=== PATIENT | female | born 1980 | race Caucasian/White ===

== ENCOUNTER 2016-06-03 00:04 | Emergency (ER) | payer OTHER ==
[~2016-06-03 00:04] MED LIST: HYDR-3534 PO; IBUP800T23 PO; NAPR500T PO; ORTHTAB4 PO; PROM25TA5 PO; VENL100T PO; VENTAER INH
[2016-06-03 02:22] VITALS: BP 145/95; PULSE 101; RESP 12; TEMP 99; O2SAT 99
--- NOTE | 2016-06-03 03:56 | PD ---
HPI Chief Complaint: Back/ Neck Pain or Injury Time Seen by Provider: 03:39 Travel History International Travel<30 days: No (unknown) Contact w/Intl Traveler<30days: No (unknown) History of Present Illness HPI 36yo F presents to the ED with c/o worsening neck pain since yesterday. Pt has been having neck pain since February 2016 and was seen by orthopedic surgeon Dr. Gonzales 3 days ago who believes she has a pinched nerve in her cervical spine. She had MRI cervical spine yesterday at [facility]. Pt states the neck pain is sharp and radiates down bilateral arms, more on left. Pain also radiates up to her head. +Pain in upper trapezius. She was cleaning the house yesterday prior to feeling the pain. Denies any fever, trauma, focal weakness or numbness, chest pain, sob, n/v, abdominal pain, visual changes. PFSH Past Medical History Asthma: Yes Depression: Yes Diminished Hearing: No Gastrointestinal Disorders: Yes (IBS) Respiratory: Yes Immunizations Current: Yes Sleep Apnea: Yes (cpap at night) : 0 Para: 0 Past Surgical History Tonsillectomy: Yes (ADDENOIDS) Social History Alcohol Use: Yes (SOCIAL) Tobacco Use: No (quit 2 years ago) Substance Use: No Allergies-Medications (Allergen,Severity, Reaction): Coded Allergies: No Known Allergies (Unverified , 06/03/16) Reported Meds & Prescriptions Reported Meds & Active Scripts Active Ibuprofen 600 Mg Tab 600 Mg PO Q8HR PRN Phenergan (Promethazine HCl) 25 Mg Tab 25 Mg PO Q6H PRN Ibuprofen 800 Mg Tab 800 Mg PO Q6HR PRN Lortab (Hydrocodone-Acetaminophen) 7.5-325 Mg Tab 1 Tab PO Q4H PRN Reported Medrol Dosepak (Methylprednisolone) 4 Mg Dspk 4 Mg PO DIRECTED Per Pharmacist direction Naproxen 500 Mg Tab 500 Mg PO BID Ortho Tri-Cyclen (Norgestimate-Ethinyl Estradiol) 0.18/0.215/0.25 mg-35 Mcg Tab 1 Tab PO DAILY Effexor (Venlafaxine HCl) 100 Mg Tab 100 Mg PO Q12H Ventolin Hfa 18 GM Inh (Albuterol Sulfate) 90 Mcg/Act Aer 2 Puff INH Q4H PRN Review of Systems Except as stated in HPI: all other systems reviewed are Neg Physical Exam Narrative GENERAL: 36yo F not in acute distress. SKIN: Warm and dry. HEAD: Atraumatic. Normocephalic. EYES: Pupils equal and round. No scleral icterus. No injection or drainage. ENT: +TTP midline cervical spine C4-C5. +TTP upper trapezius bilaterally. NECK: Trachea midline. No JVD. CARDIOVASCULAR: Regular rate and rhythm. No murmur appreciated. RESPIRATORY: No accessory muscle use. Clear to auscultation. Breath sounds equal bilaterally. GASTROINTESTINAL: Abdomen soft, non-tender, nondistended. Hepatic and splenic margins not palpable. MUSCULOSKELETAL: No obvious deformities. No clubbing. No cyanosis. No edema. NEUROLOGICAL: Awake and alert. No obvious cranial nerve deficits. Motor grossly within normal limits. Normal speech. PSYCHIATRIC: Appropriate mood and affect; insight and judgment normal. Data Data Last Documented VS Vital Signs Date Time Temp Pulse Resp B/P Pulse Ox O2 Delivery O2 Flow Rate FiO2 06/03/16 05:52 78 16 126/82 96 06/03/16 05:00 Room Air 06/03/16 02:22 99.0 Orders Diazepam (Valium) (06/03/16 04:00) Ketorolac Inj (Toradol Inj) (06/03/16 04:00) Sodium Chlor 0.9% 1000 Ml Inj (Ns 1000 M (06/03/16 04:00) MDM Medical Decision Making Medical Screen Exam Complete: Yes Emergency Medical Condition: Yes Differential Diagnosis Cervical radiculopathy vs. musculoskeletal pain Narrative Course 36yo F with neck and upper trapezius pain. No focal neurologic deficits. Pt likely have pinched nerve that is causing pain radiating down her arm. She already had MRI cspine yesterday and will follow up with Dr. Gonzales as outpatient. Pt given valium 5mg PO and toradol 30mg IV along with NS IVF. Pt reevaluated and feels much better. Headache and neck pain has resolved. Return precautions given. Diagnosis Primary Impression: Neck pain Patient Instructions: General Instructions Departure Forms: Tests/Procedures Additional Instructions: Please follow up with Dr. Gonzales as outpatient. Return to the ED if symptoms worsen. Med/Other Pt SpecificInfo: Prescription(s) given Scripts Ibuprofen 600 Mg [id number] Mg PO Q8HR PRN (PAIN) #20 TAB Ref 0 Prov:Lisbeth Lizama DO 06/03/16 Disposition: 01 DISCHARGE HOME Condition: Stable Lisbeth Lizama DO Jun 03, 2016 03:56
[2016-06-03] MEDS ORDERED: KETOROLAC TROMETHAMINE 30 MG/ML (IVP) VIAL IV PUSH ONE (04:00)
[2016-06-03] MEDS ORDERED: SODIUM CHLOR 0.9% 1000 ML INJ 1,000 ML IV ONE (04:00)
[2016-06-03] MEDS ORDERED: DIAZEPAM 5 MG TAB PO ONE (04:00)
[2016-06-03] MEDS ORDERED: MEDR4PAK PO (04:06)
[2016-06-03 04:26] VITALS: BP 145/82; PULSE 74; RESP 18; O2SAT 97
[2016-06-03 05:00] VITALS: BP 129/79; PULSE 78; RESP 16; O2SAT 97
[2016-06-03] MEDS ORDERED: IBUP-232 PO (05:38)
[2016-06-03 05:52] VITALS: BP 126/82
== END 2016-06-03 05:55 | disposition home or self-care (01) ==
LOC: PHED 00:04
DX: M54.2 Cervicalgia (principal); J45.909 Unspecified asthma, uncomplicated
CPT/HCPCS: 96361; 96374; 99283; J1885; J7030

== ENCOUNTER 2016-07-30 10:54 | Inpatient (IN) | payer OTHER ==
[~2016-07-30] VITALS: Ht 167.6 cm; Wt 73.6 kg
[~2016-07-30 10:54] MED LIST changes: +IBUP-232 PO; +MEDR4PAK PO
[2016-08-19] MEDS ORDERED: PANT40TA3 PO (06:52)
[2016-08-19] MEDS ORDERED: LOMO2.5T PO (06:52)
[2016-08-19] MEDS ORDERED: GABA400C5 PO (06:52)
[2016-08-19] MEDS ORDERED: DICY10CA12 PO (06:52)
[2016-08-19 06:54] VITALS: BP 129/88; PULSE 84; RESP 18; TEMP 98.4; O2SAT 97
[2016-08-19] MEDS ORDERED: SODIUM CHLORID 0.9% 500 ML IV PRN (07:00)
[2016-08-19] MEDS: CHLORHEXIDINE GLUCONATE 4% SOLN 120 ML BTL TOPICAL SCH ×2 (07:00→19:21)
[2016-08-19] MEDS ORDERED: VANCOMYCIN 1000 MG/NS 250 ML (for <70 kg) IV SCH ×2 (07:00)
[2016-08-19] MEDS ORDERED: CHLORHEXIDINE GLUCONATE 2 % 1 PACK (2 CLOTHS) TOPICAL PRN (07:00)
[2016-08-19] MEDS ORDERED: METOPROLOL TARTRATE 25 MG TAB PO PRN (07:00)
[2016-08-19] MEDS ORDERED: ceFAZolin 2 GM PREMIX 50 ML IV SCH (07:00)
[2016-08-19] MEDS ORDERED: POVIDONE IODINE 5% (ANTISEPSIS KIT) 4 APPLICATIONS EACH NARE PRN (07:00)
[2016-08-19] MEDS ORDERED: LACTATED RINGER'S 1000 ML IV PRN (07:00)
[2016-08-19] MEDS ORDERED: INSULIN HUMAN REGULAR 1,000 UNITS/10 ML VIAL SQ PRN (07:00)
[2016-08-19] MEDS ORDERED: ACETAMINOPHEN 1000 MG/100 ML VIAL IV ONE (08:06)
[2016-08-19] MEDS ORDERED: FAMOTIDINE 20 MG/2 ML VIAL ONE (08:06)
[2016-08-19] MEDS ORDERED: HYDROmorphone HCL PF 2 MG/ML VIAL ONE (08:06)
[2016-08-19] MEDS ORDERED: GENTAMICIN SULFATE 80 MG/2 ML VIAL IRRIGATION ONE (09:42)
[2016-08-19] MEDS ORDERED: BUPIVACAINE/EPINEPHRINE 0.25% PF 30 ML VIAL INFIL ONE (09:43)
--- NOTE | 2016-08-19 10:27 | PD.OP ---
cc: Nick Dove MD; Brent Dove MD Operative Report Date of Surgery: Aug 19, 2016 Preoperative Diagnosis: Herniated nucleus pulposus C5 6 central. Herniated nucleus pulposus C6 7 central, left. Left greater than right cervical radiculopathy Postoperative Diagnosis: Same Procedure: Anterior cervical discectomy decompression with bilateral foraminotomies, C5 6. Anterocervical discectomy decompression with bilateral foraminotomy, C6 7. Left anterior iliac crest bone graft Anesthesia: Gen. Surgeon: Brent Dove Metal Control Coordinator(s): JOSÉ LUIS Guido Operation and Findings: EBL: 50 cc INDICATIONS: Patient is a 36-year-old female with significant neck and arm pain. Investigative studies shows evidence of disc herniations at C5 6 and C6 7. There is evidence of mild spinal stenosis at both levels. Despite conservative care, the patient continued painful and symptomatically. She presents for surgical treatment. NOTE: Ebony Guido PA-C was present for the entire surgical procedure as my assistant professor of biochemistry. In my medical opinion her skill and care was necessary for proper management of this patient PROCEDURE: The patient was brought to the operating room and anesthetized in the supine position. This patient was positioned supine on the radiolucent table. All pressure points were protected in the anterior cervical spine and iliac crest was scrubbed with alcohol followed by Hibiclens followed by ChloraPrep. A timeout was done and antibiotics were given within 1 hour time window. Lateral radiographic images were used identifying the proper level. A right anterior incision was made in line with skin creases. The platysma was opened in line with the incision. Deep dissection continued in the interval between the carotid sheath and the esophagus. The longus-coli muscles were lifted on both sides and retractors were positioned allowing good exposure. Lateral radiographic images were used to identify the proper level. Luna style interosseous pins were placed at C5 and C6 allowing exposure to that level. The microscope was rolled into the field. A total discectomy was accomplished and posterior osteophytes were removed. The posterior longitudinal ligament and annulus was taken down. Bilateral foraminotomies were accomplished. The endplates were squared up anticipating later bone grafting. A blunt probe could be placed out each foramen without evidence of nerve root compromise. The C5 pin was placed down to 7. An anterior exposure was accomplished. We performed a total discectomy with excision of the posterior annulus and posterior longitudinal ligament. Bilateral foraminotomies were accomplished. Osteophytes were removed. The endplates were squared up anticipating later bone grafting. A blunt probe could be placed out each foramen without evidence of nerve root compromise. The left iliac crest was approached. A small stab incision was made allowing percutaneous access to the anterior iliac crest. Multiple cores of cancellous bone were harvested and taken to the back table to be used for later bone grafting. The wound was irrigated anesthetized and closed with 4-0 Vicryl followed by Dermabond. The case was turned over to Dr. Nick Doev for fusion and instrumentation per his dictation. FINDINGS: There was evidence of a disc herniation posterior to the annulus both at C5 6 and C6 7. The decompression was very satisfactory. Bilateral foraminotomies were accomplished. There was an element of the disc into the foramen to the left side at the C6 C7 level which was decompressed. No complication was noted. NOTE: This surgery was performed in 2 parts. The first part was the neurosurgical decompression performed under the variable power stereo microscope by the undersigned in addition to the bone graft. The second portion of the surgery will be performed by the orthopedic spine component by co -surgeon, Dr. Nick Dove for the anterior fusion with interbody cage and anterior plate. The skill of 2 surgeons was necessary to perform distinct separate procedural services as dictated above and dictated in the following operative note by Dr. Nick Dove. Brent Dove MD Aug 19, 2016 10:27
[2016-08-19] MEDS ORDERED: ONDANSETRON HCL 4 MG/2 ML VIAL IV PRN (11:45)
[2016-08-19] MEDS ORDERED: DIPHENOXYLATE/ATROPINE 2.5 MG/0.025 MG TAB PO PRN (11:45)
[2016-08-19] MEDS ORDERED: NALOXONE HCL 0.4 MG/ML AMP IV PRN (11:45)
[2016-08-19] MEDS ORDERED: Post-op Orders (for Pharmacy) MISC XX ONE (11:45)
[2016-08-19] MEDS ORDERED: ALUMINUM/MAGNESIUM/SIMETH 30 ML CUP PO PRN (11:45)
[2016-08-19] MEDS ORDERED: ALBUTEROL SULFATE 90 MCG/ACT HFA 18 GM INHALER INH PRN (11:45)
[2016-08-19] MEDS ORDERED: ACETAMINOPHEN/HYDROcodone 325 MG/7.5 MG TAB PO PRN (11:45)
[2016-08-19] MEDS ORDERED: SODIUM CHLORIDE 0.9% FLUSH 5 ML FLUSH IVF PRN (11:45)
[2016-08-19] MEDS ORDERED: DO NOT ADM ANY ANTICOAGULANT DRUGS PRN (11:47)
[2016-08-19] MEDS: LACTATED RINGER'S 1000 ML INJ 1,000 ML IV SCH ×2 (11:50→19:27)
--- NOTE | 2016-08-19 11:51 | HHI.PR ---
Immediate Post Op Note Procedure Date: Aug 19, 2016 Pre Op Diagnosis: C5-6,C6-7 HNP; Mild DDD,OA; Ramesh Cervical Radiculitis,Ramesh UE Weakness Post Op Diagnosis: Same Surgeon: Nick Dove MD Credit Reporter(s): Jaclyn Luna PA-C Procedure: C5-6,C6-7 AIF,ACC,ASI Complications: None Specimen(s) removed: None Estimated blood loss: 50cc for entire case Anesthesia: General Drains: None Patient to: PACU Patient Condition: Good Implant/Devices: SEE IMPLANT LOG (if applicable) Date/Time of Procedure: SEE SURGICAL CARE RECORD Nick Dove MD Aug 19, 2016 11:51
[2016-08-19] MEDS ORDERED: MIDAZOLAM HCL 2 MG/2 ML VIAL ONE (11:56)
[2016-08-19] MEDS ORDERED: fentaNYL CITRATE 250 MCG/5 ML AMP ONE (11:56)
[2016-08-19] MEDS ORDERED: *morphine SULFATE 8 MG/ML PERIprocedure ONLY ONE ×2 (11:57→12:24)
[2016-08-19] MEDS ORDERED: ONDANSETRON HCL 4 MG/2 ML VIAL IV PUSH ONE (12:00)
[2016-08-19] MEDS ORDERED: PROPOFOL 200 MG/20 ML AMP IV ONE (12:00)
[2016-08-19] MEDS ORDERED: LACTATED RINGER'S 1000 ML INJ 1,000 ML IV ONE (12:00)
[2016-08-19] MEDS ORDERED: NEOSTIGMINE 3 MG/3 ML SYR IV ONE (12:00)
[2016-08-19] MEDS: DICYCLOMINE HCL 10 MG CAP PO SCH ×2 (13:00→17:41)
[2016-08-19] MEDS: GABAPENTIN 300 MG CAP PO SCH ×2 (13:00→17:41)
[2016-08-19] MEDS: ACETAMINOPHEN/HYDROcodone 325 MG/7.5 MG TAB PO PRN ×2 (13:35→19:27)
--- NOTE | 2016-08-19 14:12 | RADRPT ---
EXAM DATE/TIME: 08/19/2016 11:05 [facility] COMPARISON: SPINE CERVICAL LTD (AP&LAT), April 15, 2016, 23:38. INDICATIONS : Cervical fusion, C5-6 and 6-7. MEDICAL HISTORY : None. SURGICAL HISTORY : Tonsillectomy. ENCOUNTER: Initial ACUITY: 1 day PAIN SCORE: Non-responsive. LOCATION: Cervical. FINDINGS: 3 intraoperative spot images of the cervical spine. Anterior fusion hardware is seen from C5-C7. CONCLUSION: Intraoperative spot images showing anterior cervical fusion hardware in place. Garrett Cantu MD on August 19, 2016 at 14:10 Board Certified Radiologist. This report was verified electronically.
[2016-08-19 14:30] VITALS: BP 135/92; PULSE 95; RESP 18; TEMP 98.2; O2SAT 99
[2016-08-19 15:22] VITALS: O2SAT 96
[2016-08-19] MEDS: MORPHINE SULFATE 4 MG/ML INJ IV PUSH PRN ×3 (16:39→23:32)
[2016-08-19 19:23] VITALS: BP 135/69; PULSE 96; RESP 19; TEMP 98.1; O2SAT 97
[2016-08-19] MEDS: SODIUM CHLORIDE 0.9% FLUSH 5 ML FLUSH IVF SCH (19:28)
[2016-08-19] MEDS ORDERED: ZOLPIDEM TARTRATE 5 MG TAB PO PRN (21:00)
[2016-08-19 21:11] VITALS: O2SAT 98
[2016-08-20] VITALS: BP 133/69; PULSE 100; RESP 16; TEMP 97.8; O2SAT 98
[2016-08-20] MEDS: ACETAMINOPHEN/HYDROcodone 325 MG/7.5 MG TAB PO PRN ×3 (02:26→12:57)
[2016-08-20 04:00] VITALS: BP 112/66; PULSE 80; RESP 16; TEMP 97.3; O2SAT 97
[2016-08-20] MEDS: MORPHINE SULFATE 4 MG/ML INJ IV PUSH PRN ×2 (04:32→09:12)
--- NOTE | 2016-08-20 06:59 | PD.ORT.PN ---
Subjective Subjective Remarks pt doing better, arm pain improved, post op neck soreness Objective Vitals Vital Signs Date Time Temp Pulse Resp B/P Pulse Ox O2 Delivery O2 Flow Rate FiO2 08/20/16 04:00 97.3 80 16 112/66 97 08/20/16 00:00 97.8 100 16 133/69 98 08/19/16 21:11 98 08/19/16 19:23 98.1 96 19 135/69 97 08/19/16 15:22 96 Nasal Cannula 2.00 08/19/16 14:30 98.2 95 18 135/92 99 08/19/16 14:00 98.7 88 14 138/82 98 Nasal Cannula 2 08/19/16 13:30 69 13 125/82 97 Nasal Cannula 2 08/19/16 13:00 87 12 135/79 98 Nasal Cannula 2 08/19/16 12:45 85 14 138/89 98 Nasal Cannula 2 08/19/16 12:30 76 15 151/82 98 Nasal Cannula 2 08/19/16 12:15 69 13 135/99 99 Nasal Cannula 2 08/19/16 12:00 73 14 161/81 98 Nasal Cannula 2 08/19/16 11:47 98.4 80 15 157/93 99 Nasal Cannula 2 I/O 08/19/16 08/19/16 08/19/16 08/20/16 08/20/16 08/20/16 07:00 15:00 23:00 07:00 15:00 23:00 Intake Total 1340 ml 780 ml 1226 ml Output Total 1350 ml 650 ml Balance -10 ml 780 ml 576 ml Intake Oral 40 ml 480 ml 480 ml IV Total 300 ml 746 ml Other 1300 ml Output Urine Total 700 ml 650 ml Estimated Blood Loss 50 ml Other 600 ml Objective Remarks also seen by Dr. Nick Dove [place] collar in place motor is +5/5, improved from pre-operatively dressing dry and intact Assessment & Plan Assessment and Plan POD #1 s/p C5-7 ACDF [place] collar x 4 weeks counseled on no smoking and no NSAIDs discharge home today, orthopedically stable [place] 7.5 in chart Jaclyn Luna Aug 20, 2016 06:59
[2016-08-20 07:52] VITALS: O2SAT 97
[2016-08-20 08:00] VITALS: BP 143/78; PULSE 91; RESP 16; TEMP 98; O2SAT 99
[2016-08-20] MEDS ORDERED: NORGESTIMATE ETHINYL ESTRADIOL PO SCH (09:00)
[2016-08-20] MEDS ORDERED: ORTHO TRI CYCLEN PO SCH (09:00)
[2016-08-20] MEDS: SODIUM CHLORIDE 0.9% FLUSH 5 ML FLUSH IVF SCH (09:00)
[2016-08-20] MEDS ORDERED: PANTOPRAZOLE SOD 40 MG DELAYED RELEASE TAB PO SCH (09:00)
[2016-08-20] MEDS ORDERED: MULTIVITAMINS/MINERALS THERAPEUTIC TAB PO SCH (09:00)
[2016-08-20] MEDS: GABAPENTIN 300 MG CAP PO SCH ×2 (09:08→12:57)
[2016-08-20] MEDS: DICYCLOMINE HCL 10 MG CAP PO SCH ×2 (09:08→12:57)
[2016-08-20] MEDS ORDERED: PNEUMOCOCCAL POLYVALENT INJ 25 MCG/0.5 ML SYR IM ONE (10:00)
[2016-08-20] MEDS ORDERED: INFLUENZA VIRUS VACCINE (QUADRIVALENT) 0.5 ML SYR IM ONE (10:00)
[2016-08-20] MEDS: LACTATED RINGER'S 1000 ML INJ 1,000 ML IV SCH (12:39)
--- NOTE | 2016-08-23 15:54 | MP ---
cc: SALMA MARCUM M.D., [place] DATE OF SURGERY: 08/19/2016 PREOPERATIVE DIAGNOSIS 1. C5-6 moderate herniated nucleus pulposus. 2. C6-7 mild central left-sided herniated nucleus pulposus. 3. Cervical spine mild degenerative disc disease, osteoarthritis. 4. Bilateral cervical radiculitis with bilateral upper extremity weakness. POSTOPERATIVE DIAGNOSIS 1. C5-6 moderate herniated nucleus pulposus. 2. C6-7 mild central left-sided herniated nucleus pulposus. 3. Cervical spine mild degenerative disc disease, osteoarthritis. 4. Bilateral cervical radiculitis with bilateral upper extremity weakness. PROCEDURE C5-6, C6-7 interbody fusion; C5-6, C6-7 SpineNet ACC anterior cervical cage; C5-C7 SpineNet Rauscher anterior spinal instrumentation. . SURGEON Leland Dove MD ASSESSMENT MARIE Solorzano SPECIMEN None. ESTIMATED BLOOD LOSS 50 ccs for the entire case. COMPLICATIONS None. ANESTHESIA General. DRAIN None. CONDITION Stable. PLAN OF ACTIVITY Per orders. PROCEDURE Dr. Brent Dove and myself were co-surgeons in this surgical procedure. Dr. Brent Dove performed the neuro decompression portion of procedure by performing a C5-6, C6-7 anterior cervical diskectomy, anterior decompression using operative microscope and a left anterior iliac crest bone grafting. I was not present for his portion of the procedure. I then performed the orthopedic fusion and stabilization portion of the procedure. My visitor use assistant MARIE Solorzano was present for the entire surgical case. She was medically necessary for the entire case because of the complexity of the case and to facilitate the performance of the procedure. The FACS TEACHER at the back table was not a skill set for this case to manipulate the instruments, e.g., the multiple different types of soft tissue retractors, trial implants and permanent implants. The endplates at C6-7 were prepared for fusion. The hyaline cartilage endplates were removed using angled curettes and burs. A 6, 10 x 12 ACC cage was placed at the interspace. Using anterior iliac crest bone grafting under fluoroscopic guidance interbody fusion was performed at C6-7 level. The endplates at C5-6 were prepared for fusion. Hyaline cartilage endplates were removed using angled curettes and burs. A 5, 10 x 12 ACC cage was placed in the interspace. Anterior iliac crest bone grafting was used under fluoroscopic guidance. A 40-mm length SpineNet Rauscher plate was used that revealed contour ____ normal cervical lordosis. Two pins were used to fixate the plate to the anterior vertebral bodies. Under fluoroscopic guidance it was found to be in satisfactory positioning. The two screws were used in the vertebral body at C5, C6 and C7. The screws at C5 and C6 were 12 mm in length. The screws in C7 were 14 mm in length. These screws were 4.0 mm in diameter fixed angle screws. Each screw was drilled. Each screw was appropriately inserted into the vertebral bodies and each screw head was appropriately locked to the plate. The fixation pins were removed. The wound itself was dry. It was irrigated with copious amounts of sterile saline antibiotic solution. Intraoperative fluoroscopy AP and lateral position confirmed satisfactory position of the bone graft at C5-6, C6-7, satisfactory position of the ACC anterior spinal cage at C5-6, C6-7 and satisfactory position of anterior spinal instrumentation at C5-C7. The wound was irrigated again with copious amounts of sterile saline. The wound itself was dry. We closed in multiple layers using 3-0 Vicryl. Skin was approximated with running subcuticular 4-0 Vicryl. Dermabond was placed over the skin incision. Sterile dressing was applied. The patient was placed in a [place] cervical orthosis. The patient tolerated the procedure well and arrived in the recovery room in stable and satisfactory condition. MD HOLA Urban/AVELINO /11:39 AM /3:29 PM
== END 2016-08-20 13:09 | disposition home or self-care (01) | DRG 473 ==
LOC: HSDI 08-19 06:19 → N06B 08-19 14:38
PROVIDERS: ADMIT Orthopaedic Surgery Orthopaedic Surgery of the Spine; ATTEND Orthopaedic Surgery Orthopaedic Surgery of the Spine
PROC: 0RG10A0 Fusion of Cervical Vertebral Joint with Interbody Fusion Device, Anterior Approach, Anterior Column, Open Approach (ICD-10-PCS; 2016-08-19)
PROC: 0RB30ZZ Excision of Cervical Vertebral Disc, Open Approach (ICD-10-PCS; 2016-08-19)
PROC: 0RB30ZZ Excision of Cervical Vertebral Disc, Open Approach (ICD-10-PCS; 2016-08-19)
PROC: 0QB30ZZ Excision of Left Pelvic Bone, Open Approach (ICD-10-PCS; 2016-08-19)
PROC: 0RG10A0 Fusion of Cervical Vertebral Joint with Interbody Fusion Device, Anterior Approach, Anterior Column, Open Approach (ICD-10-PCS; principal; 2016-08-19 08:27)
DX: M50.122 Cervical disc disorder at C5-C6 level with radiculopathy (principal); M48.02 Spinal stenosis, cervical region; M50.123 Cervical disc disorder at C6-C7 level with radiculopathy; Z23 Encounter for immunization
CPT/HCPCS: 72040; 76000; 90471; 90732; 94150; C1713; G0009; J0131; J0690; J1170; J1580; J2250; J2270; J2405; J2710; J3010; J3370; J7050; J7120

== ENCOUNTER 2016-08-21 11:55 | Emergency (ER) | payer OTHER ==
[~2016-08-21 11:55] MED LIST changes: +DICY10CA12 PO; +GABA400C5 PO; -IBUP-232 PO; -IBUP800T23 PO; +LOMO2.5T PO; -MEDR4PAK PO; -NAPR500T PO; +PANT40TA3 PO; -PROM25TA5 PO; -VENL100T PO
[2016-08-21 11:57] VITALS: BP 149/79; PULSE 89; RESP 17; TEMP 97.8; O2SAT 98
--- NOTE | 2016-08-21 12:57 | PD ---
HPI . patient wanting refills on pain meds Chief Complaint: Medication Refill Request Time Seen by Provider: 12:57 Travel History International Travel<30 days: No Contact w/Intl Traveler<30days: No Traveled to known affect area: No History of Present Illness HPI 36-year-old female here with request for pain medication refill. Patient recently had neck surgery and is requesting a refill on her hydrocodone. She tells me that the pharmacy will not issue her a refill as she ran out of medications to early. On August 11, 2016 patient was given 50 hydrocodone's me that she is out of them already. She is in tears asking me for pain medication. I have discussed with Dr. Blankenship and offered the patient medications here in the ED, but she is concerned about going home without pain meds. She is yelling and screaming at me. She tells me I am doing nothing. I did offer her pain medications here in ED and offered toradol upon discharge. She got up and left. PFSH Past Medical History Asthma: Yes Depression: Yes Cardiovascular Problems: No Diabetes: No Diminished Hearing: No Endocrine: No Gastrointestinal Disorders: Yes (IBS) Genitourinary: No Musculoskeletal: No Neurologic: Yes Reproductive: No Respiratory: Yes (asthma) Immunizations Current: Yes Sleep Apnea: Yes (cpap at night) Thyroid Disease: No ?: Not : 0 Para: 0 Past Surgical History Body Medical Devices: TITANIUM SCREWS IN LOWER BACK Tonsillectomy: Yes (ADDENOIDS) Social History Alcohol Use: Yes (SOCIAL) Tobacco Use: No (quit 2 years ago) Substance Use: No Allergies-Medications (Allergen,Severity, Reaction): Coded Allergies: No Known Allergies (Unverified , 08/21/16) Reported Meds & Prescriptions Reported Meds & Active Scripts Active Lortab (Hydrocodone-Acetaminophen) 7.5-325 Mg Tab 1 Tab PO Q4H PRN Reported Gabapentin 400 Mg Cap 600 Cap PO TID Pantoprazole (Pantoprazole Sodium) 40 Mg Tab 40 Mg PO DAILY Dicyclomine (Dicyclomine HCl) 10 Mg Cap 10 Mg PO TID Lomotil (Diphenoxylate-Atropine) 2.5-0.025 Mg Tab 1 Tab PO Q6H PRN Ortho Tri-Cyclen (Norgestimate-Ethinyl Estradiol) 0.18/0.215/0.25 mg-35 Mcg Tab 1 Tab PO DAILY Ventolin Hfa 18 GM Inh (Albuterol Sulfate) 90 Mcg/Act Aer 2 Puff INH Q4H PRN Review of Systems General / Constitutional: No: Fever Eyes: No: Visual changes HENT: No: Headaches Cardiovascular: No: Chest Pain or Discomfort Respiratory: No: Shortness of Breath Gastrointestinal: No: Abdominal Pain Genitourinary: No: Dysuria Musculoskeletal: Positive: Pain (neck pain) Skin: No Rash Neurologic: No: Weakness Psychiatric: No: Depression Endocrine: No: Polydipsia Hematologic/Lymphatic: No: Easy Bruising Physical Exam Narrative Patient did allow me to listen to her heart and lungs. They were both without any abnormalities. She was able to get out of the hospital bed and ambulatory without any difficulty. Data Data Last Documented VS Vital Signs Date Time Temp Pulse Resp B/P Pulse Ox O2 Delivery O2 Flow Rate FiO2 08/21/16 11:57 97.8 89 17 149/79 98 MDM Medical Decision Making Medical Screen Exam Complete: Yes Emergency Medical Condition: Yes Medical Record Reviewed: Yes Differential Diagnosis acute on chronic pain, recent neck surgery, drug seeking behavior Narrative Course 36-year-old female here with request for pain medication refill. Patient recently had neck surgery and is requesting a refill on her hydrocodone. She tells me that the pharmacy will not issue her a refill as she ran out of medications to early. On August 11, 2016 patient was given 50 hydrocodone's me that she is out of them already. She is in tears asking me for pain medication. I have discussed with Dr. Blankenship and offered the patient medications here in the ED, but she is concerned about going home without pain meds. She is yelling and screaming at me. She tells me I am doing nothing. I did offer her pain medications here in ED and offered toradol upon discharge. She got up and left. Diagnosis Primary Impression: Left against medical advice Condition: Stable Samina Rousseau Aug 21, 2016 12:57
== END 2016-08-21 14:03 | disposition left against medical advice (07) ==
LOC: NETRI 11:55
DX: R68.89 Other general symptoms and signs (principal); Z76.0 Encounter for issue of repeat prescription
CPT/HCPCS: 99281

== ENCOUNTER 2017-07-16 14:35 | Emergency (ER) | payer OTHER ==
[~2017-07-16] VITALS: Ht 167.6 cm; Wt 77.0 kg
[2017-07-16 14:42] VITALS: BP 129/58; PULSE 106; RESP 16; TEMP 99; O2SAT 98
[2017-07-16] MEDS ORDERED: SODIUM CHLORIDE 0.9% FLUSH 10 ML FLUSH IV FLUSH PRN (15:00)
[2017-07-16 15:12] VITALS: BP 128/71; PULSE 88; RESP 18; O2SAT 98
[2017-07-16 15:12] LABS: BILIRUBIN, URINE NEG (NEG); BLOOD, URINE TRACE (NEG); GLUCOSE,URINE NEG (NEG); KETONE, URINE NEG (NEG); NITRITE,URINE NEG (NEG); URINE LEUKOCYTE ESTERASE SMALL (NEG)
[2017-07-16 15:13] LABS: AUTOMATED NEUTROPHIL # 5.6 TH/MM3 (1.8-7.7); BASOPHIL # 0.1 TH/MM3 (0-0.2); BASOPHIL % 0.7 % (0.0-2.0); EOSINOPHIL # 0.2 TH/MM3 (0-0.4); EOSINOPHIL % 2.4 % (0.0-4.0); HEMATOCRIT 31.5 % (35.0-46.0); LYMPH % 28.5 % (9.0-44.0); LYMPHOCYTE # 2.5 TH/MM3 (1.0-4.8); MEAN CELL VOLUME 79.5 FL (80.0-100.0); MEAN CORPUSCULAR HEMOGLOBIN 27.7 PG (27.0-34.0); MEAN CORPUSCULAR HGB CONC 34.8 % (32.0-36.0); MEAN PLATELET VOLUME 7.1 FL (7.0-11.0); MONO % 4.8 % (0.0-8.0); MONOCYTE # 0.4 TH/MM3 (0-0.9); NEUT % 63.6 % (16.0-70.0); PLATELET COUNT 452 TH/MM3 (150-450); RED BLOOD COUNT 3.97 MIL/MM3 (4.00-5.30); RED CELL DISTRIBUTION WIDTH 15.6 % (11.6-17.2); WHITE BLOOD COUNT 8.8 TH/MM3 (4.0-11.0)
[2017-07-16 15:17] LABS: URINE COLOR YELLOW (YELLW/STRAW)
[2017-07-16 15:18] LABS: BACTERIA, URINE FEW /hpf; RBC, URINE 0-3 /hpf (0-3); SQUAMOUS EPITHELIAL CELL URINE > 8 /hpf (0-5)
[2017-07-16 15:18] LABS: CHLORIDE 107 MEQ/L (98-107); SODIUM (NA) 138 MEQ/L (136-145)
[2017-07-16] MEDS ORDERED: TRAZ100T10 PO (15:19)
[2017-07-16] MEDS ORDERED: FENO145T2 PO (15:19)
[2017-07-16] MEDS ORDERED: BUPR150CR PO (15:19)
[2017-07-16 15:21] LABS: CALCIUM 8.7 MG/DL (8.5-10.1)
[2017-07-16 15:22] LABS: ALBUMIN 3.6 GM/DL (3.4-5.0); BICARBONATE 24.5 MEQ/L (21.0-32.0); BLOOD UREA NITROGEN 10 MG/DL (7-18); GLUCOSE,RANDOM 121 MG/DL (74-106)
[2017-07-16 15:25] LABS: ALT (GPT) 13 U/L (10-53); AST (GOT) 10 U/L (15-37); CREATININE 0.77 MG/DL (0.50-1.00); GLOMERULAR FILTRATION RATE 85 ML/MIN (>89)
[2017-07-16 15:27] LABS: TOTAL BILIRUBIN ADULT 0.2 MG/DL (0.2-1.0); TOTAL PROTEIN 7.2 GM/DL (6.4-8.2)
--- NOTE | 2017-07-16 15:27 | RADRPT ---
EXAM DATE/TIME: 07/16/2017 15:19 [facility] COMPARISON: CT BRAIN W/O CONTRAST, May 10, 2016, 0:02. INDICATIONS : Confusion, headache dysphagia. RADIATION DOSE: 61.25 CTDIvol (mGy) MEDICAL HISTORY : Asthma, IBS SURGICAL HISTORY : Tonsillectomy. Cervical fusion. ENCOUNTER: Initial ACUITY: 2 weeks PAIN SCALE: 8/10 LOCATION: cranial TECHNIQUE: Multiple contiguous axial images were obtained of the head. Using automated exposure control and adj ustment of the mA and/or kV according to patient size, radiation dose was kept as low as reasonably a chievable to obtain optimal diagnostic quality images. DICOM format image data is available electro nically for review and comparison. FINDINGS: CEREBRUM: The ventricles are normal for age. No evidence of midline shift, mass lesion, hemorrhage or acute in farction. No extra-axial fluid collections are seen. POSTERIOR FOSSA: The cerebellum and brainstem are intact. The 4th ventricle is midline. The cerebellopontine angle i s unremarkable. EXTRACRANIAL: The visualized portion of the orbits is intact. Chronic bilateral maxillary sinus disease. SKULL: The calvaria is intact. No evidence of skull fracture. No significant changes compared to the prior study. CONCLUSION: Normal examination for a patient of this age. No significant change has occurred. Chronic maxillary sinus disease. Christ Huang MD on July 16, 2017 at 15:25 Board Certified Radiologist. This report was verified electronically.
[2017-07-16 15:28] LABS: ALKALINE PHOSPHATASE 57 U/L (45-117)
[2017-07-16] MEDS ORDERED: PROCHLORPERAZINE INJ 10 MG/2 ML VIAL IV PUSH ONE (15:30)
[2017-07-16] MEDS ORDERED: diphenhydrAMINE HCL 50 MG/ML VIAL IV PUSH ONE (15:30)
[2017-07-16 15:42] VITALS: BP 115/62; PULSE 87; RESP 20; O2SAT 98
--- NOTE | 2017-07-16 15:46 | PD ---
HPI . Headache Chief Complaint: Headache Time Seen by Provider: 14:48 Travel History International Travel<30 days: No Contact w/Intl Traveler<30days: No Traveled to known affect area: No History of Present Illness HPI This patient presents with chief complaint of headache and confusion for the last week. Her headache is located in the occiput and is described as a pressure-like sensation. She states that the pain can vary anywhere from a 7- 810. It is associated with phonophobia. Ibuprofen provides no relief. She states that she is having trouble completing sentences and feels confused and foggy. She has had no associated fevers and no associated blurred vision. PFSH Past Medical History Asthma: Yes Anxiety: Yes Depression: Yes Cardiovascular Problems: No High Cholesterol: Yes Diabetes: No Diminished Hearing: No Endocrine: No Gastrointestinal Disorders: Yes (IBS) Genitourinary: No Headaches: Yes Musculoskeletal: No Neurologic: Yes Reproductive: No Respiratory: Yes (asthma) Immunizations Current: Yes Sleep Apnea: Yes (cpap at night) Thyroid Disease: No Tetanus Vaccination: Unknown Influenza Vaccination: Yes ?: Not LMP: 1.5 WEEKS : 0 Para: 0 Past Surgical History Body Medical Devices: TITANIUM SCREWS IN LOWER BACK 6 IN NECK Tonsillectomy: Yes (ADDENOIDS) Social History Alcohol Use: Yes (SOCIAL) Tobacco Use: No (quit 2 years ago) Substance Use: No Allergies-Medications (Allergen,Severity, Reaction): Coded Allergies: No Known Allergies (Unverified , 08/21/16) Reported Meds & Prescriptions Reported Meds & Active Scripts Active Reported Wellbutrin SR 12 HR (Bupropion HCl) 150 Mg Tab 150 Mg PO Q12HR Trazodone (Trazodone HCl) 100 Mg Tablet 100 Mg PO HS Fenofibrate 145 Mg Tab 145 Mg PO DAILY Gabapentin 400 Mg Cap 800 Cap PO TID Dicyclomine (Dicyclomine HCl) 10 Mg Cap 10 Mg PO TID Ortho Tri-Cyclen (Norgestimate-Ethinyl Estradiol) 0.18/0.215/0.25 mg-35 Mcg Tab 1 Tab PO DAILY Ventolin Hfa 18 GM Inh (Albuterol Sulfate) 90 Mcg/Act Aer 2 Puff INH Q4H PRN Review of Systems Except as stated in HPI: all other systems reviewed are Neg General / Constitutional: No: Fever, Chills Eyes: No: Blurred Vision, Photophobia HENT: Positive: Headaches Neurologic: Positive: Change in Mentation Physical Exam Narrative GENERAL: This patient looks amazingly considering her symptoms. She is lying on the stretcher comfortably. She is totally lucid. SKIN: warm/dry. Normal color and turgor. HEAD: Normocephalic. Atraumatic. She does have occipital tenderness. EYES: Pupils equal and round. No scleral icterus. No injection or drainage. ENT: No nasal bleeding or discharge. Mucous membranes pink and moist. NECK: Trachea midline. Full range of motion without pain.. Neck is supple. CARDIOVASCULAR: Regular rate and rhythm. RESPIRATORY: No accessory muscle use. Clear to auscultation. Breath sounds equal bilaterally. GASTROINTESTINAL: Abdomen soft. Nontender. Bowel sounds present. Nondistended. MUSCULOSKELETAL: No obvious deformities. NEUROLOGICAL: Awake and alert. No obvious cranial nerve deficits. Motor grossly within normal limits. Trouble Tracer are full and equal. His is tremulous but intact. Normal speech. PSYCHIATRIC: Appropriate mood and affect; insight and judgment normal. Data Data Last Documented VS Vital Signs Date Time Temp Pulse Resp B/P (MAP) Pulse Ox O2 Delivery O2 Flow Rate FiO2 07/16/17 15:42 87 20 115/62 (79) 98 Room Air 07/16/17 14:42 99.0 Orders Orders Ammonia (07/16/17 14:48) Complete Blood Count With Diff (07/16/17 14:48) Comprehensive Metabolic Panel (07/16/17 14:48) Thyroid Stimulating Hormone (07/16/17 14:48) Urinalysis - C+S If Indicated (07/16/17 14:48) Ct Brain W/O Iv Contrast(Rout) (07/16/17 14:48) Blood Glucose (07/16/17 14:48) Ecg Monitoring (07/16/17 14:48) Iv Access Insert/Monitor (07/16/17 14:48) Oximetry (07/16/17 14:48) Sodium Chloride 0.9% Flush (Ns Flush) (07/16/17 15:00) Drug Screen, Random Urine (07/16/17 14:48) Urine Culture (07/16/17 14:45) Diphenhydramine Inj (Benadryl Inj) (07/16/17 15:30) Prochlorperazine Inj (Compazine Inj) (07/16/17 15:30) Ed Urine Pregnancytest Poc (07/16/17 15:28) Labs Laboratory Tests Test 07/16/17 14:45 07/16/17 15:00 Urine Collection Type CLEAN CATCH Urine Color YELLOW Urine Turbidity CLEAR Urine pH 6.0 Urine Specific [place] 1.020 Urine Protein NEG mg/dL Urine Glucose (UA) NEG mg/dL Urine Ketones NEG mg/dL Urine Occult Blood TRACE Urine Nitrite NEG Urine Bilirubin NEG Urine Leukocyte Esterase SMALL Urine RBC 0-3 /hpf Urine WBC 9-14 /hpf Urine Squamous Epithelial Cells > 8 /hpf Urine Bacteria FEW /hpf Microscopic Urinalysis Comment CULTURE INDICATED Urine Collection Time 14:45 Urine Opiates Screen NEG Urine Barbiturates Screen NEG Urine Amphetamines Screen NEG Urine Benzodiazepines Screen NEG Urine Cocaine Screen NEG Urine Cannabinoids Screen NEG White Blood Count 8.8 TH/MM3 Red Blood Count 3.97 MIL/MM3 Hemoglobin 11.0 GM/DL Hematocrit 31.5 % Mean Corpuscular Volume 79.5 FL Mean Corpuscular Hemoglobin 27.7 PG Mean Corpuscular Hemoglobin Concent 34.8 % Red Cell Distribution Width 15.6 % Platelet Count 452 TH/MM3 Mean Platelet Volume 7.1 FL Neutrophils (%) (Auto) 63.6 % Lymphocytes (%) (Auto) 28.5 % Monocytes (%) (Auto) 4.8 % Eosinophils (%) (Auto) 2.4 % Basophils (%) (Auto) 0.7 % Neutrophils # (Auto) 5.6 TH/MM3 Lymphocytes # (Auto) 2.5 TH/MM3 Monocytes # (Auto) 0.4 TH/MM3 Eosinophils # (Auto) 0.2 TH/MM3 Basophils # (Auto) 0.1 TH/MM3 CBC Comment DIFF FINAL Differential Comment Blood Urea Nitrogen 10 MG/DL Creatinine 0.77 MG/DL Random Glucose 121 MG/DL Total Protein 7.2 GM/DL Albumin 3.6 GM/DL Calcium Level 8.7 MG/DL Alkaline Phosphatase 57 U/L Aspartate Amino Transf (AST/SGOT) 10 U/L Alanine Aminotransferase (ALT/SGPT) 13 U/L Total Bilirubin 0.2 MG/DL Sodium Level 138 MEQ/L Potassium Level 3.3 MEQ/L Chloride Level 107 MEQ/L Carbon Dioxide Level 24.5 MEQ/L Anion Gap 7 MEQ/L Estimat Glomerular Filtration Rate 85 ML/MIN Ammonia 38 MCMOL/L Thyroid Stimulating Hormone 3rd Gen 2.590 uIU/ML MDM Medical Decision Making Medical Screen Exam Complete: Yes Emergency Medical Condition: Yes Differential Diagnosis Differential diagnosis of altered mental status includes but is not limited to infection, electrolyte abnormality, neurological event, intoxication Narrative Course This patient presents stating that she has headache associated with altered mental status. Clinically, her mental status is not altered. She has a benign neurological examination. CBC & BMP Diagram 07/16/17 15:00 Total Protein 7.2, Albumin 3.6, Calcium Level 8.7, Alkaline Phosphatase 57, Aspartate Amino Transf (AST/SGOT) 10 L, Alanine Aminotransferase (ALT/SGPT) 13, Total Bilirubin 0.2 TSH 2.59 ammonia 38 UA is equivocal. She has small leukocyte esterase, 914 WBC, few bacteria but many squamous epithelial cells. Tox screen is negative. Last Impressions Head CT 07/16/17 1448 Signed Impressions: Service Date/Time: Sunday, July 16, 2017 15:19 - CONCLUSION: Normal examination for a patient of this age. No significant change has occurred. Chronic maxillary sinus disease. Christ Huang MD No clinically concerning etiology for her headache and confusion has been found. Diagnosis Primary Impression: Cephalgia Qualified Codes: G44.209 - Tension-type headache, unspecified, not intractable Patient Instructions: Acute Headache (DC), General Instructions Disposition: 01 DISCHARGE HOME Condition: Stable Devora Riojas MD Jul 16, 2017 15:45
== END 2017-07-16 16:43 | disposition home or self-care (01) ==
LOC: PHED 14:35
DX: G44.209 Tension-type headache, unspecified, not intractable (principal); R82.99 Other abnormal findings in urine; E78.00 Pure hypercholesterolemia, unspecified; J45.909 Unspecified asthma, uncomplicated; J32.0 Chronic maxillary sinusitis; F32.9 Major depressive disorder, single episode, unspecified; Z87.891 Personal history of nicotine dependence; Z79.899 Other long term (current) drug therapy
CPT/HCPCS: 70450; 80053; 80307; 81001; 82140; 84443; 84703; 85025; 87086; 96374; 96375; 99284; J0780; J1200

== ENCOUNTER 2017-10-08 01:21 | Emergency (ER) | payer OTHER ==
[~2017-10-08] VITALS: Ht 167.6 cm; Wt 76.8 kg
[~2017-10-08 01:21] MED LIST changes: +BUPR150CR PO; +FENO145T2 PO; -HYDR-3534 PO; -LOMO2.5T PO; -PANT40TA3 PO; +TRAZ100T10 PO
[2017-10-08 01:22] VITALS: BP 117/67; PULSE 95; RESP 18; TEMP 98.4; O2SAT 96
[2017-10-08] MEDS ORDERED: GADODIAMIDE PF 287 MG/ML 5 ML VIAL (for RAD MRI) IVCONTRAST ONE (01:22)
[2017-10-08] MEDS ORDERED: MELO15TA20 PO (01:45)
[2017-10-08] MEDS ORDERED: DULO1CAP2 PO (01:45)
[2017-10-08] MEDS ORDERED: GABA800T PO (01:45)
[2017-10-08] MEDS ORDERED: KETOROLAC TROMETHAMINE 30 MG/ML (IVP) VIAL IV PUSH ONE (02:00)
[2017-10-08] MEDS ORDERED: SODIUM CHLORIDE 0.9% FLUSH 10 ML FLUSH IV FLUSH PRN (02:00)
[2017-10-08] MEDS ORDERED: DEXAMETHASONE SOD PHOS 20 MG/5 ML VIAL IV PUSH ONE (02:00)
--- NOTE | 2017-10-08 02:08 | PD ---
HPI Chief Complaint: Pain: Acute or Chronic Time Seen by Provider: 01:43 Travel History International Travel<30 days: No Contact w/Intl Traveler<30days: No Traveled to known affect area: No History of Present Illness HPI Patient is a 37-year-old female with history of chronic back pain. Patient reports that on April 02, 2015, she had an L5-L1 fusion by Dr. Lowe at [facility]. Patient reports that she typically walks with a walker. Patient reports that around 6:30 PM tonight, she began to have increased numbness. Patient reports that she has numbness to bilateral extremities going all way down to her toes. Patient reports that she also has chronic low back pain, reports that she exacerbation of her low back pain. Patient reports that she is having increased weakness to her lower extremities, reports that she feels unsteady on her feet. Denies any incontinence of urine or bowel. PFSH Past Medical History Asthma: Yes Anxiety: Yes Depression: Yes Cardiovascular Problems: No High Cholesterol: Yes Diabetes: No Diminished Hearing: No Endocrine: No Gastrointestinal Disorders: Yes (IBS) Genitourinary: No Headaches: Yes Musculoskeletal: No Neurologic: Yes Reproductive: No Respiratory: Yes (asthma) Immunizations Current: Yes Sleep Apnea: Yes (cpap at night) Thyroid Disease: No Tetanus Vaccination: Unknown Influenza Vaccination: Yes ?: Not LMP: 10/07/17 : 0 Para: 0 Past Surgical History Body Medical Devices: TITANIUM SCREWS IN LOWER BACK 6 IN NECK Tonsillectomy: Yes (ADDENOIDS) Other Surgery: Yes Social History Alcohol Use: Yes (SOCIAL) Tobacco Use: No (quit 2 years ago) Substance Use: No Allergies-Medications (Allergen,Severity, Reaction): Coded Allergies: No Known Allergies (Unverified Adverse Reaction, Unknown, 10/08/17) Reported Meds & Prescriptions Reported Meds & Active Scripts Active Reported Duloxetine DR (Duloxetine HCl) 30 Mg Capdr 30 Mg PO DAILY Meloxicam 15 Mg Tab 15 Mg PO DAILY Gabapentin 800 Mg Tab 1,200 Mg PO TID Trazodone (Trazodone HCl) 100 Mg Tablet 100 Mg PO HS Fenofibrate 145 Mg Tab 145 Mg PO DAILY Dicyclomine (Dicyclomine HCl) 10 Mg Cap 10 Mg PO TID Ortho Tri-Cyclen (Norgestimate-Ethinyl Estradiol) 0.18/0.215/0.25 mg-35 Mcg Tab 1 Tab PO DAILY Ventolin Hfa 18 GM Inh (Albuterol Sulfate) 90 Mcg/Act Aer 2 Puff INH Q4H PRN Review of Systems General / Constitutional: No: Fever Eyes: No: Visual changes HENT: No: Headaches Cardiovascular: No: Chest Pain or Discomfort Respiratory: No: Shortness of Breath Gastrointestinal: No: Abdominal Pain Genitourinary: No: Dysuria Musculoskeletal: Positive: Weakness, Pain (Low back pain) Skin: No Rash Neurologic: Positive: Paresthesia, No: Weakness Psychiatric: No: Depression Endocrine: No: Polydipsia Hematologic/Lymphatic: No: Easy Bruising Physical Exam Narrative GENERAL: Moderate distress SKIN: Focused skin assessment warm/dry. HEAD: Atraumatic. Normocephalic. EYES: Pupils equal and round. No scleral icterus. No injection or drainage. ENT: No nasal bleeding or discharge. Mucous membranes pink and moist. NECK: Trachea midline. No JVD. CARDIOVASCULAR: Regular rate and rhythm. No murmur appreciated. RESPIRATORY: No accessory muscle use. Clear to auscultation. Breath sounds equal bilaterally. GASTROINTESTINAL: Abdomen soft, non-tender, nondistended. Hepatic and splenic margins not palpable. MUSCULOSKELETAL: No obvious deformities. No clubbing. No cyanosis. No edema. NEUROLOGICAL: Awake and alert. No obvious cranial nerve deficits. Patient with decreased strength, 3/5 to b/l lower extremities PSYCHIATRIC: Appropriate mood and affect; insight and judgment normal. Data Data Last Documented VS Vital Signs Date Time Temp Pulse Resp B/P (MAP) Pulse Ox O2 Delivery O2 Flow Rate FiO2 10/08/17 04:00 88 18 120/68 (85) 97 Room Air 10/08/17 01:22 98.4 Orders Orders Mri L Spine W&W/O Contrast (10/08/17 ) Basic Metabolic Panel (Bmp) (10/08/17 01:55) Iv Access Insert/Monitor (10/08/17 01:55) Sodium Chloride 0.9% Flush (Ns Flush) (10/08/17 02:00) Ed Urine Pregnancytest Poc (10/08/17 01:55) Dexamethasone Inj (Decadron Inj) (10/08/17 02:00) Ketorolac Inj (Toradol Inj) (10/08/17 02:00) Drug Screen, Random Urine (10/08/17 02:05) Gadodiamide Pf Inj (Omniscan Pf Inj) (10/08/17 01:22) Labs Laboratory Tests Test 10/08/17 02:10 10/08/17 03:30 Blood Urea Nitrogen 14 MG/DL Creatinine 0.98 MG/DL Random Glucose 111 MG/DL Calcium Level 8.5 MG/DL Sodium Level 139 MEQ/L Potassium Level 4.3 MEQ/L Chloride Level 109 MEQ/L Carbon Dioxide Level 25.7 MEQ/L Anion Gap 4 MEQ/L Estimat Glomerular Filtration Rate 64 ML/MIN MDM Medical Decision Making Medical Screen Exam Complete: Yes Emergency Medical Condition: Yes Medical Record Reviewed: Yes Interpretation(s) Vital Signs Date Time Temp Pulse Resp B/P (MAP) Pulse Ox O2 Delivery O2 Flow Rate FiO2 10/08/17 01:22 98.4 95 18 117/67 (84) 96 Differential Diagnosis Cauda equina, sciatica, chronic pain, epidural abscess Narrative Course 37-year-old female who presents with paresthesias, numbness to bilateral extremities which began around 630pm tonight. MRI of lumbar spine ordered Patient was given IV dexamethasone as well as Toradol for her acute on chronic back pain. MRI of the lumbar spine with contrast shows: POST CONTRAST: No abnormal areas of contrast enhancement are seen. T12-L1: The thecal sac has a normal diameter. No evidence of disc bulge or protrusion. The neural foramina are patent bilaterally. L1-L2: The thecal sac has a normal diameter. No evidence of disc bulge or protrusion. The neural foramina are patent bilaterally. L2-L3: The thecal sac has a normal diameter. No evidence of disc bulge or protrusion. The neural foramina are patent bilaterally. L3-L4: The thecal sac has a normal diameter. No evidence of disc bulge or protrusion. The neural foramina are patent bilaterally. L4-L5: The thecal sac has a normal diameter. No evidence of disc bulge or protrusion. The neural foramina are patent bilaterally. L5-S1: There is previous fusion across the lumbosacral junction. No canal or foraminal stenosis. CONCLUSION: 1. Previous fusion across the lumbosacral junction. No canal or foraminal stenosis. Patient with no neurological reason for her to have slight paresthesias, I have reviewed MRI results with patient in detail, she is to follow-up with her orthopedic surgeon and return to the emergency room as needed. Diagnosis Primary Impression: Leg paresthesia Patient Instructions: General Instructions Additional Instructions: Please provide patient with a copy of their lab work and studies at discharge* * Please follow up with your primary care doctor in 2-3 days Return to the ER if symptoms worsen or progress Return to the ER as needed Please follow-up with orthopedic surgeon Disposition: 01 DISCHARGE HOME Condition: Stable Gloria Jackson DO October 08, 2017 02:08
[2017-10-08 02:32] LABS: CALCIUM 8.5 MG/DL (8.5-10.1)
[2017-10-08 02:33] LABS: BICARBONATE 25.7 MEQ/L (21.0-32.0)
[2017-10-08 02:36] LABS: CREATININE 0.98 MG/DL (0.50-1.00)
--- NOTE | 2017-10-08 03:57 | RADRPT ---
EXAM DATE/TIME: 10/08/2017 03:10 [facility] COMPARISON: No previous studies available for comparison. INDICATIONS : Paralysis. Bilateral lower leg weakness for one day. CONTRAST: 15 cc Omniscan (gadodiamide) IV MEDICAL HISTORY : None. SURGICAL HISTORY : Fusion, cervical. Fusion, lumbar. Tonsillectomy. ENCOUNTER: Initial ACUITY: 1 day PAIN SCORE: 8/10 LOCATION: Bilateral lower legs TECHNIQUE: Multiplanar multisequence MRI of the lumbar spine was performed with and without contrast. FINDINGS: The most caudal appearing lumbar vertebra is numbered as L5. VERTEBRAE: Homogeneous signal. Normal alignment. CONUS: Normal level and configuration. POST CONTRAST: No abnormal areas of contrast enhancement are seen. T12-L1: The thecal sac has a normal diameter. No evidence of disc bulge or protrusion. The neural foramina are patent bilaterally. L1-L2: The thecal sac has a normal diameter. No evidence of disc bulge or protrusion. The neural foramina are patent bilaterally. L2-L3: The thecal sac has a normal diameter. No evidence of disc bulge or protrusion. The neural foramina are patent bilaterally. L3-L4: The thecal sac has a normal diameter. No evidence of disc bulge or protrusion. The neural foramina are patent bilaterally. L4-L5: The thecal sac has a normal diameter. No evidence of disc bulge or protrusion. The neural foramina are patent bilaterally. L5-S1: There is previous fusion across the lumbosacral junction. No canal or foraminal stenosis. CONCLUSION: 1. Previous fusion across the lumbosacral junction. No canal or foraminal stenosis. Gen Humphries MD on October 08, 2017 at 3:36 Board Certified Radiologist. This report was verified electronically.
[2017-10-08 04:00] VITALS: BP 120/68; PULSE 88; RESP 18; O2SAT 97
== END 2017-10-08 04:23 | disposition home or self-care (01) ==
LOC: PHED 01:21
DX: R20.2 Paresthesia of skin (principal); G89.29 Other chronic pain; M54.5 Low back pain; E78.00 Pure hypercholesterolemia, unspecified; J45.909 Unspecified asthma, uncomplicated; F32.9 Major depressive disorder, single episode, unspecified; Z79.899 Other long term (current) drug therapy
CPT/HCPCS: 72158; 80048; 80307; 84703; 96374; 96375; 99284; A9579; J1100; J1885

== ENCOUNTER 2017-10-09 05:01 | Inpatient (IN) | payer OTHER ==
[~2017-10-09] VITALS: Ht 167.6 cm; Wt 81.8 kg
[~2017-10-09 05:01] MED LIST changes: +DULO1CAP2 PO; +GABA800T PO; +MELO15TA20 PO
[2017-10-09] MEDS ORDERED: GADODIAMIDE PF 287 MG/ML 5 ML VIAL (for RAD MRI) IVCONTRAST ONE ×2 (05:02→18:52)
[2017-10-09 05:06] VITALS: BP 112/68; PULSE 94; RESP 20; TEMP 99.5; O2SAT 94
[2017-10-09] MEDS ORDERED: SODIUM CHLOR 0.9% 1000 ML INJ 1,000 ML IV ONE (05:45)
[2017-10-09] MEDS ORDERED: KETOROLAC TROMETHAMINE 30 MG/ML (IVP) VIAL IV PUSH ONE (05:45)
[2017-10-09 06:00] LABS: AUTOMATED NEUTROPHIL # 8.6 TH/MM3 (1.8-7.7); BASOPHIL # 0.1 TH/MM3 (0-0.2); BASOPHIL % 0.8 % (0.0-2.0); EOSINOPHIL # 0.1 TH/MM3 (0-0.4); EOSINOPHIL % 0.6 % (0.0-4.0); HEMATOCRIT 32.4 % (35.0-46.0); HEMOGLOBIN 10.4 GM/DL (11.6-15.3); LYMPH % 26.8 % (9.0-44.0); LYMPHOCYTE # 3.4 TH/MM3 (1.0-4.8); MEAN CELL VOLUME 80.5 FL (80.0-100.0); MEAN CORPUSCULAR HEMOGLOBIN 25.9 PG (27.0-34.0); MEAN CORPUSCULAR HGB CONC 32.2 % (32.0-36.0); MEAN PLATELET VOLUME 7.4 FL (7.0-11.0); MONO % 3.9 % (0.0-8.0); MONOCYTE # 0.5 TH/MM3 (0-0.9); NEUT % 67.9 % (16.0-70.0); PLATELET COUNT 558 TH/MM3 (150-450); RED BLOOD COUNT 4.02 MIL/MM3 (4.00-5.30); RED CELL DISTRIBUTION WIDTH 13.3 % (11.6-17.2); WHITE BLOOD COUNT 12.8 TH/MM3 (4.0-11.0)
[2017-10-09 06:09] VITALS: BP 122/71; PULSE 82; RESP 18; O2SAT 97
[2017-10-09 06:16] LABS: BILIRUBIN, URINE NEG (NEG); BLOOD, URINE TRACE (NEG); GLUCOSE,URINE NEG (NEG); KETONE, URINE NEG (NEG); NITRITE,URINE NEG (NEG); URINE COLOR YELLOW (YELLW/STRAW); URINE LEUKOCYTE ESTERASE SMALL (NEG)
[2017-10-09 06:22] LABS: BACTERIA, URINE FEW /hpf; RBC, URINE 0-3 /hpf (0-3); WBC, URINE 0-2 /hpf (0-5)
[2017-10-09 07:04] LABS: CALCIUM 9.4 MG/DL (8.5-10.1); CREATININE 0.81 MG/DL (0.50-1.00)
--- NOTE | 2017-10-09 07:06 | PD ---
HPI Chief Complaint: Neuro Symptoms/ Deficits Time Seen by Provider: 05:31 Travel History International Travel<30 days: No Contact w/Intl Traveler<30days: No Traveled to known affect area: No History of Present Illness HPI 37-year-old female presents to the emergency department by private transportation the care of her significant other for complaint of tremors since 9 PM. Patient reports that since Tuesday evening she has had weakness and paresthesias to the lower extremities bilaterally. Patient states she was seen in the emergency department late Tuesday night early Tuesday and underwent MRI of the lumbar spine which revealed no abnormality. Patient denies have any incontinence of urine or bowel. Patient states that since she was discharged from the emergency department Tuesday/early Tuesday she has had persistent lower extremity numbness and weakness with level of symptoms moving cephalad from the mid thigh to the waist area. Patient denies any shortness of breath or near syncope or syncope. Patient states that she has been having tremors in her arms and legs since 9 PM but is noted weakness in arms and legs since Tuesday as well. Patient has history of chronic back pain and neck pain. Patient underwent L1-L5 fusion by Dr. Lowe and [place] March 2015 and then July 2016 underwent anterior cervical discectomy and decompression with foraminotomies and iliac bone grafting. Patient's had no recent procedural intervention. Patient denies any injury or fall. No report of recent viral illness or antibiotic use. Patient's had no bladder or bowel dysfunction no urinary retention or incontinence no bowel incontinence. Patient states since Tuesday she has decided to use a walker to assist ambulation. Patient was able to use walker for ambulation purposes from her house to her car and then from the car to the emergency department. Patient does not report any headache visual disturbance altered mentation difficulty with speech or swallowing. Patient's past medical history is significant for asthma anxiety depression dyslipidemia irritable bowel syndrome sleep apnea as well as back and neck surgery adenoidectomy. Patient occasionally drinks alcohol and denies any tobacco use. Patient is on control does not report any chest pain pleuritic chest pain or shortness of breath. No reported long-distance travel protracted bedrest or surgical procedure no lower extremity swelling or calf pain. Patient was seen 10/08/17 and underwent an MRI of the lumbar spine with and without contrast, per reading radiologist previous fusion no canal or foraminal stenosis. PFSH Past Medical History Narrative Medical Asthma anxiety depression dyslipidemia irritable bowel syndrome sleep apnea lumbar fusion cervical discectomy and foraminotomy with iliac bone graft occasional alcohol use Asthma: Yes Anxiety: Yes Depression: Yes Cardiovascular Problems: No High Cholesterol: Yes Diabetes: No Diminished Hearing: No Endocrine: No Gastrointestinal Disorders: Yes (IBS) Genitourinary: No Headaches: Yes Musculoskeletal: No Neurologic: Yes Reproductive: No Respiratory: Yes (asthma) Immunizations Current: Yes Sleep Apnea: Yes (cpap at night) Thyroid Disease: No Influenza Vaccination: Yes ?: Not LMP: 10/04/17 : 0 Para: 0 Past Surgical History Body Medical Devices: TITANIUM SCREWS IN LOWER BACK 6 IN NECK Tonsillectomy: Yes (ADDENOIDS) Other Surgery: Yes Social History Alcohol Use: Yes (SOCIAL) Tobacco Use: No (quit 2 years ago) Substance Use: No Allergies-Medications (Allergen,Severity, Reaction): Coded Allergies: No Known Allergies (Unverified Adverse Reaction, Unknown, 10/09/17) Reported Meds & Prescriptions Reported Meds & Active Scripts Active Reported Duloxetine DR (Duloxetine HCl) 30 Mg Capdr 30 Mg PO DAILY Meloxicam 15 Mg Tab 15 Mg PO DAILY Gabapentin 800 Mg Tab 1,200 Mg PO TID Trazodone (Trazodone HCl) 100 Mg Tablet 100 Mg PO HS Fenofibrate 145 Mg Tab 145 Mg PO DAILY Dicyclomine (Dicyclomine HCl) 10 Mg Cap 10 Mg PO TID Ortho Tri-Cyclen (Norgestimate-Ethinyl Estradiol) 0.18/0.215/0.25 mg-35 Mcg Tab 1 Tab PO DAILY Ventolin Hfa 18 GM Inh (Albuterol Sulfate) 90 Mcg/Act Aer 2 Puff INH Q4H PRN Review of Systems Except as stated in HPI: all other systems reviewed are Neg Physical Exam Narrative GENERAL: Well-developed well-nourished female no acute distress no respiratory distress; GCS 15 intermittently shaking her hands and her arms and her feet but this tremor type behavior seems to dissipate while talking and then increases when not talking. SKIN: Warm and dry. HEAD: Atraumatic. Normocephalic. EYES: Pupils equal and round. No scleral icterus. No injection or drainage. ENT: No nasal bleeding or discharge. Mucous membranes pink and moist. NECK: Trachea midline. No JVD. CARDIOVASCULAR: Regular rate and rhythm. RESPIRATORY: No accessory muscle use. Clear to auscultation. Breath sounds equal bilaterally. GASTROINTESTINAL: Abdomen soft, non-tender, nondistended. Hepatic and splenic margins not palpable. MUSCULOSKELETAL: Extremities without clubbing, cyanosis, or edema. No obvious deformities. NEUROLOGICAL: Awake and alert. No obvious cranial nerve deficits. Motor grossly within normal limits. 5/5 muscle strength in the arms and 3-4/5 muscle strength in the legs. DTRs 2+ and equal no clonus. Slight decreased sensation to light touch but present. Normal speech. PSYCHIATRIC: Appropriate mood and affect; insight and judgment normal. Data Data Last Documented VS Vital Signs Date Time Temp Pulse Resp B/P (MAP) Pulse Ox O2 Delivery O2 Flow Rate FiO2 10/09/17 06:09 82 18 122/71 (88) 97 Room Air 10/09/17 05:06 99.5 Orders Orders Complete Blood Count With Diff (10/09/17 05:31) Basic Metabolic Panel (Bmp) (10/09/17 05:31) Urinalysis - C+S If Indicated (10/09/17 05:31) Ed Urine Pregnancytest Poc (10/09/17 05:31) Creatine Kinase (Cpk) (10/09/17 05:31) Mri T Spine W & W/O Contrast (10/09/17 ) Mri C Spine W&W/O Contrast (10/09/17 ) Sodium Chlor 0.9% 1000 Ml Inj (Ns 1000 M (10/09/17 05:45) Ketorolac Inj (Toradol Inj) (10/09/17 05:45) Magnesium (Mg) (10/09/17 05:31) Labs Laboratory Tests Test 10/09/17 05:00 10/09/17 06:02 White Blood Count 12.8 TH/MM3 Red Blood Count 4.02 MIL/MM3 Hemoglobin 10.4 GM/DL Hematocrit 32.4 % Mean Corpuscular Volume 80.5 FL Mean Corpuscular Hemoglobin 25.9 PG Mean Corpuscular Hemoglobin Concent 32.2 % Red Cell Distribution Width 13.3 % Platelet Count 558 TH/MM3 Mean Platelet Volume 7.4 FL Neutrophils (%) (Auto) 67.9 % Lymphocytes (%) (Auto) 26.8 % Monocytes (%) (Auto) 3.9 % Eosinophils (%) (Auto) 0.6 % Basophils (%) (Auto) 0.8 % Neutrophils # (Auto) 8.6 TH/MM3 Lymphocytes # (Auto) 3.4 TH/MM3 Monocytes # (Auto) 0.5 TH/MM3 Eosinophils # (Auto) 0.1 TH/MM3 Basophils # (Auto) 0.1 TH/MM3 CBC Comment DIFF FINAL Differential Comment Blood Urea Nitrogen 11 MG/DL Creatinine 0.81 MG/DL Random Glucose 114 MG/DL Calcium Level 9.4 MG/DL Magnesium Level 2.0 MG/DL Sodium Level 141 MEQ/L Potassium Level 3.6 MEQ/L Chloride Level 109 MEQ/L Carbon Dioxide Level 27.0 MEQ/L Anion Gap 5 MEQ/L Estimat Glomerular Filtration Rate 80 ML/MIN Total Creatine Kinase 53 U/L Urine Color YELLOW Urine Turbidity SL CLOUDY Urine pH 6.0 Urine Specific [place] LESS/EQUAL 1.005 Urine Protein NEG mg/dL Urine Glucose (UA) NEG mg/dL Urine Ketones NEG mg/dL Urine Occult Blood TRACE Urine Nitrite NEG Urine Bilirubin NEG Urine Urobilinogen 0.2 MG/DL Urine Leukocyte Esterase SMALL Urine RBC 0-3 /hpf Urine WBC 0-2 /hpf Urine Squamous Epithelial Cells 6-8 /hpf Urine Bacteria FEW /hpf Microscopic Urinalysis Comment CULT NOT INDICATED MDM Medical Decision Making Medical Screen Exam Complete: Yes Emergency Medical Condition: Yes Medical Record Reviewed: Yes Interpretation(s) poc hcg: negative ua: cx not indicated CBC & BMP Diagram 10/09/17 05:00 Calcium Level 9.4 #, Magnesium Level 2.0 Vital Signs Date Time Temp Pulse Resp B/P (MAP) Pulse Ox O2 Delivery O2 Flow Rate FiO2 10/09/17 06:09 82 18 122/71 (88) 97 Room Air 10/09/17 05:20 18 97 Room Air 10/09/17 05:06 99.5 94 20 112/68 (83) 94 Differential Diagnosis Cauda equina Guillain Oakley sciatica epidural abscess chronic pain syndrome anxiety Narrative Course IV access obtained specimens collected and sent for resulting imaging studies ordered Care signed over to Dr. Pearce at 7:44 AM Padmini Edmond MD October 09, 2017 07:06
--- NOTE | 2017-10-09 07:59 | PD ---
Physical Exam Narrative Received signout from Dr. Edmond. Patient was seen in the emergency department over the weekend for bilateral lower extremity weakness. MRI of L-spine was negative for any acute abnormality. Presented to the emergency department complaining of persistent weakness and tremors in bilateral upper extremities. She was given IV fluids and 30 mg IV Toradol. Labs were ordered as well as an MRI of C and T-spine. Labs were consistent with leukocytosis. At the time of signout patient is in MRI. 0838: Patient back from discharge. Reviewed history and physical from this visit and the prior visit. Patient reports increasing bilateral lower extremity weakness initially was mid thigh to toes now it is waist to toes. No bowel or bladder changes. Sensation is better right lower extremity and left lower extremity. I got the patient up to walk and she states that she was weak bilateral lower extremity and I had to assist with her walking, she says is new. Advises that she can use elliptical at the gym several times during the week, with her knee occasionally giving out on her. States that he has never had what she has currently as it relates to the bilateral lower extremity weakness. 0957: Consulted neurology. Get MRI brain with and without, lumbar puncture, patient needs admission and he will see in the hospital. 1136: MRI advises they can't do brain with and without as she has already received contrast today. Called Dr. Tate back and advised him. Requesting MRI brain without. States "don't worry about the LP, we'll take care of that on the floor." I have ordered the MRI brain without. Patient has a bed on the floor , she has been sent to the floor and admit MD notified to f/u on MRI. T spine MRI: CONCLUSION: Negative MRI thoracic spine with and without contrast. C Spine: CONCLUSION: No acute findings or evidence of cord compression. Prior ACF C5-7. Data Data Last Documented VS Vital Signs Date Time Temp Pulse Resp B/P (MAP) Pulse Ox O2 Delivery O2 Flow Rate FiO2 10/09/17 10:49 78 18 135/65 (88) 98 Room Air 10/09/17 05:06 99.5 Orders Orders Complete Blood Count With Diff (10/09/17 05:31) Basic Metabolic Panel (Bmp) (10/09/17 05:31) Urinalysis - C+S If Indicated (10/09/17 05:31) Ed Urine Pregnancytest Poc (10/09/17 05:31) Creatine Kinase (Cpk) (10/09/17 05:31) Mri T Spine W & W/O Contrast (10/09/17 ) Mri C Spine W&W/O Contrast (10/09/17 ) Sodium Chlor 0.9% 1000 Ml Inj (Ns 1000 M (10/09/17 05:45) Ketorolac Inj (Toradol Inj) (10/09/17 05:45) Magnesium (Mg) (10/09/17 05:31) Mri Brain W&W/O Contrast (10/09/17 10:28) Gadodiamide Pf Inj (Omniscan Pf Inj) (10/09/17 05:02) Admit Order (Ed Use Only) (10/09/17 10:59) Labs Laboratory Tests Test 10/09/17 05:00 10/09/17 06:02 White Blood Count 12.8 TH/MM3 Red Blood Count 4.02 MIL/MM3 Hemoglobin 10.4 GM/DL Hematocrit 32.4 % Mean Corpuscular Volume 80.5 FL Mean Corpuscular Hemoglobin 25.9 PG Mean Corpuscular Hemoglobin Concent 32.2 % Red Cell Distribution Width 13.3 % Platelet Count 558 TH/MM3 Mean Platelet Volume 7.4 FL Neutrophils (%) (Auto) 67.9 % Lymphocytes (%) (Auto) 26.8 % Monocytes (%) (Auto) 3.9 % Eosinophils (%) (Auto) 0.6 % Basophils (%) (Auto) 0.8 % Neutrophils # (Auto) 8.6 TH/MM3 Lymphocytes # (Auto) 3.4 TH/MM3 Monocytes # (Auto) 0.5 TH/MM3 Eosinophils # (Auto) 0.1 TH/MM3 Basophils # (Auto) 0.1 TH/MM3 CBC Comment DIFF FINAL Differential Comment Blood Urea Nitrogen 11 MG/DL Creatinine 0.81 MG/DL Random Glucose 114 MG/DL Calcium Level 9.4 MG/DL Magnesium Level 2.0 MG/DL Sodium Level 141 MEQ/L Potassium Level 3.6 MEQ/L Chloride Level 109 MEQ/L Carbon Dioxide Level 27.0 MEQ/L Anion Gap 5 MEQ/L Estimat Glomerular Filtration Rate 80 ML/MIN Total Creatine Kinase 53 U/L Urine Color YELLOW Urine Turbidity SL CLOUDY Urine pH 6.0 Urine Specific [place] LESS/EQUAL 1.005 Urine Protein NEG mg/dL Urine Glucose (UA) NEG mg/dL Urine Ketones NEG mg/dL Urine Occult Blood TRACE Urine Nitrite NEG Urine Bilirubin NEG Urine Urobilinogen 0.2 MG/DL Urine Leukocyte Esterase SMALL Urine RBC 0-3 /hpf Urine WBC 0-2 /hpf Urine Squamous Epithelial Cells 6-8 /hpf Urine Bacteria FEW /hpf Microscopic Urinalysis Comment CULT NOT INDICATED MDM Supervised Visit with [facility]CA: No Condition: Stable Jennifer Pearce MD October 09, 2017 07:59
[2017-10-09 08:23] VITALS: BP 146/80; PULSE 80; RESP 18; O2SAT 98
--- NOTE | 2017-10-09 09:51 | RADRPT ---
EXAM DATE/TIME: 10/09/2017 07:28 [facility] COMPARISON: No previous studies available for comparison. INDICATIONS : Inability to ambulate. Tremors, weakness. CONTRAST: 15 cc Omniscan (gadodiamide) IV MEDICAL HISTORY : None. SURGICAL HISTORY : Fusion, cervical. Fusion, lumbar. Tonsillectomy. ENCOUNTER: Initial ACUITY: 2 day PAIN SCORE: 0/10 LOCATION: [facility] TECHNIQUE: Multiplanar multisequence MRI of the thoracic spine was performed. FINDINGS: VERTEBRA: Normal vertebral body height. Homogeneous marrow signal. ALIGNMENT: Normal. CORD: Normal position and configuration. POST CONTRAST: No abnormal areas of contrast enhancement seen. T1-T2: Normal. T2-T3: The thecal sac has a normal diameter. No evidence of disc bulge or protrusion. T3-T4: The thecal sac has a normal diameter. No evidence of disc bulge or protrusion. T4-T5: The thecal sac has a normal diameter. No evidence of disc bulge or protrusion. T5-T6: The thecal sac has a normal diameter. No evidence of disc bulge or protrusion. T6-T7: The thecal sac has a normal diameter. No evidence of disc bulge or protrusion. T7-T8: The thecal sac has a normal diameter. No evidence of disc bulge or protrusion. T8-T9: The thecal sac has a normal diameter. No evidence of disc bulge or protrusion. T9-T10: The thecal sac has a normal diameter. No evidence of disc bulge or protrusion. T10-T11: The thecal sac has a normal diameter. No evidence of disc bulge or protrusion. T11-T12: The thecal sac has a normal diameter. No evidence of disc bulge or protrusion. T12-L1: The thecal sac has a normal diameter. No evidence of disc bulge or protrusion. CONCLUSION: Negative MRI thoracic spine with and without contrast. Aaron Nova MD on October 09, 2017 at 9:28 Board Certified Radiologist. This report was verified electronically.
--- NOTE | 2017-10-09 09:54 | RADRPT ---
EXAM DATE/TIME: 10/09/2017 07:28 [facility] COMPARISON: No previous studies available for comparison. INDICATIONS : Inability to ambulate. Weakness, tremors. CONTRAST: 15 cc Omniscan (gadodiamide) IV MEDICAL HISTORY : None. SURGICAL HISTORY : Fusion, cervical. Fusion, lumbar. Tonsillectomy. ENCOUNTER: Initial ACUITY: 1 day PAIN SCORE: 0/10 LOCATION: [facility] TECHNIQUE: Multiplanar, multisequence MRI examination of the cervical spine was performed. FINDINGS: VERTEBRAE: Field distortion artifacts C5-C7 related to anterior cervical pain. ALIGNMENT: No evidence of subluxation. CORD: Normal configuration and signal. There is limited visualization of the anterior half of the cervical cord at C5-7 due to the field distortion artifact, but no gross abnormality seen. POST FOSSA: The cerebellar tonsils are normal in position. POST-CONTRAST: No abnormal areas of enhancement are seen. C2-C3: The thecal sac has a normal configuration. There is no evidence of disc herniation or spinal canal stenosis. The neural foramina are patent bilaterally. C3-C4: The thecal sac has a normal configuration. There is no evidence of disc herniation or spinal canal s tenosis. The neural foramina are patent bilaterally. C4-C5: The thecal sac has a normal configuration. There is no evidence of disc herniation or spinal canal s tenosis. The neural foramina are patent bilaterally. C5-C6: No gross abnormality. The neural foramen are patent. C6-C7: No gross abnormality. The neural foramen are patent. C7-T1: The thecal sac has a normal configuration. There is no evidence of disc herniation or spinal canal s tenosis. The neural foramina are patent bilaterally. CONCLUSION: No acute findings or evidence of cord compression. Prior ACF C5-7. Aaron Nova MD on October 09, 2017 at 9:49 Board Certified Radiologist. This report was verified electronically.
[2017-10-09 10:49] VITALS: BP 135/65; PULSE 78; RESP 18; O2SAT 98
[2017-10-09 12:30] VITALS: BP 112/67; PULSE 72; RESP 16; TEMP 97.1; O2SAT 97
[2017-10-09] MEDS ORDERED: NALOXONE HCL 0.4 MG/ML AMP IV PUSH PRN (12:30)
[2017-10-09] MEDS ORDERED: SODIUM CHLORIDE 0.9% FLUSH 10 ML FLUSH IV FLUSH PRN (12:30)
[2017-10-09] MEDS ORDERED: ACETAMINOPHEN 325 MG TAB PO PRN (12:30)
[2017-10-09] MEDS ORDERED: ACETAMINOPHEN/HYDROcodone 325 MG/5 MG TAB PO PRN (12:45)
[2017-10-09] MEDS: ACETAMINOPHEN/HYDROcodone 325 MG/5 MG TAB PO PRN ×2 (13:04→21:19)
--- NOTE | 2017-10-09 13:21 | PD.CONS ---
History of Present Illness Service Neurology Consult Requested By ER Reason for Consult Leg numbness Primary Care Physician Jose Brown M.D. History of Present Illness 37-year-old female admitted for leg numbness and tremulousness. Symptoms began 2-3 days ago with numbness in her feet she states it has worked its way up to her mid trunk region. She has also had some tremors in her hands. This never happened to her before. Denies any sick contacts or any recent vaccinations or immunizations. Denies any fever night sweats or chills. Has control of her bowel and bladder. Denies any weakness but feels some imbalance when ambulating. Denies any diplopia or vision loss dysphagia or language disturbance. Has a history of chronic pain syndrome related to previous cervical and lumbar surgery for which she is seen by pain management the outpatient setting. She is currently not working and is looking into disability. [facility] Past Medical History Narrative Medical Asthma anxiety depression dyslipidemia irritable bowel syndrome sleep apnea lumbar fusion cervical discectomy and foraminotomy with iliac bone graft occasional alcohol use Asthma: Yes Anxiety: Yes Depression: Yes Headaches: Yes Musculoskeletal: No Neurologic: Yes Past Surgical History Body Medical Devices: TITANIUM SCREWS IN LOWER BACK 6 IN NECK Tonsillectomy: Yes (ADDENOIDS) Other Surgery: Yes Social History Alcohol Use: Yes (SOCIAL) Tobacco Use: No (quit 2 years ago) Substance Use: No Allergies-Medications (Allergen,Severity, Reaction): Coded Allergies: No Known Allergies (Unverified Adverse Reaction, Unknown, 10/09/17) Reported Meds & Prescriptions Review of Systems Except as stated in HPI: all other systems reviewed are Neg Review of Systems All other ROS: ROS reviewed as documented in chart Past Family Social History Allergies: Coded Allergies: No Known Allergies (Unverified Adverse Reaction, Unknown, 10/09/17) Active Ordered Medications Current Medications Medications (Trade) Dose Ordered Sig/Paola Route Start Time Stop Time Status Last Admin (NS Flush) 2 ml UNSCH PRN IV FLUSH 10/09/17 12:30 (NS Flush) 2 ml BID IV FLUSH 10/09/17 21:00 (Tylenol) 650 mg Q4H PRN PO 10/09/17 12:30 (Narcan Inj) 0.4 mg UNSCH PRN IV PUSH 10/09/17 12:30 (Dante 5-325 Mg) 1 tab Q4H PRN PO 10/09/17 12:45 (Dante 5-325 Mg) 2 tab Q4H PRN PO 10/09/17 12:45 10/09/17 13:04 Exam I&O / VS 10/09/17 10/09/17 10/10/17 14:59 22:59 06:59 Intake Total 1000 ml Balance 1000 ml Intake IV Total 1000 ml # Voids 1 Vital Signs Date Time Temp Pulse Resp B/P (MAP) Pulse Ox O2 Delivery O2 Flow Rate FiO2 10/09/17 11:48 10/09/17 10:49 78 18 135/65 (88) 98 Room Air 10/09/17 08:25 18 10/09/17 08:23 80 18 146/80 (102) 98 Room Air 10/09/17 06:09 82 18 122/71 (88) 97 Room Air 10/09/17 05:20 18 97 Room Air 10/09/17 05:06 99.5 94 20 112/68 (83) 94 General: Alert and Oriented, No acute distress Eye: EOMI Respiratory: Non-labored respirations Neurologic: Alert, Oriented Psychiatric: Cooperative, Appropriate mood & affect Exam Comments Awake alert oriented 3 fluent articulate, no aphasia extraocular movements intact no ptosis noted, OU 3-2 mm bilaterally tongue midline. Upper extremity with mild postural tremor. Slight increased tone in her arms. No pronator drift she is able to raise all 4 extremities to gravity. Decreased pinprick up to the knees. Reflexes are 1-2+ 2+ at the knees 2+ at the ankles. No clonus plantarflex response. Gait not assessed secondary potential fall risk Review/Management Diagnosis/Plan: (1) Sensory deficit, bilateral ICD Codes: R41.89 - Other symptoms and signs involving cognitive functions and awareness Status: Acute Plan: Progressive sensory changes, tremulousness MRI CT L-spine do not demonstrate any spinal cord lesion She has preserved reflexes and strength. Although her exam is slightly atypical for Palmer Oakley syndrome she could have a sensory ataxic form of it Recommendations MRI of the brain to exclude any demyelinating lesion. CSF studies Consider IVIG treatment Therapy Pain control Discussed with the patient, her mother, RN (2) H/O Spinal surgery ICD Codes: Z98.890 - Other specified postprocedural states Status: Chronic Plan: Lumbar surgery performed in [place], cervical spine surgery performed locally (3) Depression ICD Codes: F32.9 - Major depressive disorder, single episode, unspecified Status: Chronic Plan: Antidepressants (4) Chronic pain syndrome ICD Codes: G89.4 - Chronic pain syndrome Status: Chronic Plan: Followed by pain management Elijah Tate MD October 09, 2017 13:21
[2017-10-09 14:22] LABS: PROTHROMBIN TIME - PATIENT 10.5 SEC (9.8-11.6)
[2017-10-09 14:48] LABS: C-REACTIVE PROTEIN LESS THAN 0.29 MG/DL (0.00-0.30)
--- NOTE | 2017-10-09 16:27 | HHI.HP ---
History of Present Illness Primary Care Physician Jose Brown M.D. Admission Diagnosis bilat lower extremity weakness Diagnoses: History of Present Illness Pt presented on tuesday with increased numbness in her legs. States had been driving back from [place] from playing dungeons and dragons with her friends when she noted numbness in the last 3 toes of her left foot spread up to her left knee then she developed numbness in her rt foot to her thigh. She describes a sensation of pins and needs or multiple sharp shocks as from an intense TENS unit. Came to ER. MRI of lumbar spine was negative and she states she was told to f/u with neurolgist and pcp. She states tuesday she slept and woke feeling weak and used walker. Last night into early AM she developed a tremor in her hands and felt like her legs were spasming. She states the abnormal sensation of numbness and tingling had moved up to both hips. She has a hx of cervical and lumbar surgeries and has had numbness in lateral aspect of rt thigh which is not new. She has been under the care of pain management and had caudal wero aprox 3-4 weeks ago. Had a reaction to the shot becoming red in the face, chest ,and arm and went to [facility] where she states they ran tests and told her it was an allergic reaction. She states she has had WERO in the past w/o a reaction or problem. She has had no recent illness or fever. Her only recent medication changes were over a month ago when she had cymbalta resumed. She did have an episode of temors similar to this one when she was given wellbutrin and cymbalta to take together and they were stopped. Review of Systems Constitutional: DENIES: Diaphoretic episodes, Fatigue, Fever, Weight gain, Weight loss, Chills, Dizziness, Change in appetite, Night Sweats Endocrine: DENIES: Abnorml menstrual pattern, Heat/cold intolerance, Polydipsia , Polyuria, Polyphagia Eyes: COMPLAINS OF: Diplopia (s) Ears, nose, mouth, throat: COMPLAINS OF: Hoarseness Respiratory: COMPLAINS OF: Shortness of breath Cardiovascular: DENIES: Chest pain, Palpitations, Syncope, Dyspnea on Exertion , PND, Lower Extremity Edema, Orthopnea, Claudication Gastrointestinal: DENIES: Abdominal pain, Black stools, Bloody stools, Constipation, Diarrhea, Nausea, Vomiting, Difficulty Swallowing, Anorexia Genitourinary: DENIES: Abnormal vaginal bleeding, Dysmenorrhea, Dyspareunia, Sexual dysfunction, Urinary frequency, Urinary incontinence, Urgency, Hematuria , Dysuria, Nocturia, Vaginal discharge Musculoskeletal: COMPLAINS OF: Back pain, Neck pain Integumentary: DENIES: Abnormal pigmentation, Pruritus, Rash, Nail changes, Breast masses, Breast skin changes, Nipple discharge Hematologic/lymphatic: DENIES: Bruising, Lymphadenopathy Immunologic/allergic: DENIES: Eczema, Urticaria Neurologic: COMPLAINS OF: Paresthesias, Speech Problems, Tremor, Poor Balance Psychiatric: COMPLAINS OF: Anxiety, Depression Past Family Social History Allergies: Coded Allergies: No Known Allergies (Unverified Adverse Reaction, Unknown, 10/09/17) Past Medical History Asthma IBS Depression/Anciety SUSAN GERD Past Surgical History tonsillectomy L4-L5 fusion ACDD with foraminotomies and iliac bone grafting Reported Medications Trazadone 100 mg at HS Meloxicam 15 mg daily Dicyclomine 10 mg TID PRN Fenofibrate 145 mg daily Ortho TriCyclen Pantoprazole prn Family History Cancer Alzheimer Social History Has not worked in 2 yrs, 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 Lives with her mother in [place]. Smoked a pack a week for 10 yrs stopped in 2012 Occasional alcohol Goes to the gym 3 times a week 20 min on the elliptical to strengthen her legs. Was not able on tuesday to go. Physical Exam Vital Signs Vital Signs Date Time Temp Pulse Resp B/P (MAP) Pulse Ox O2 Delivery O2 Flow Rate FiO2 10/09/17 12:30 97.1 72 16 112/67 (82) 97 10/09/17 11:48 10/09/17 10:49 78 18 135/65 (88) 98 Room Air 10/09/17 08:25 18 10/09/17 08:23 80 18 146/80 (102) 98 Room Air 10/09/17 06:09 82 18 122/71 (88) 97 Room Air 10/09/17 05:20 18 97 Room Air 10/09/17 05:06 99.5 94 20 112/68 (83) 94 Physical Exam GENERAL: This is a well-nourished, well-developed patient, in no apparent distress.Lying in hospital bed. SKIN: No rashes, ecchymoses or lesions. Cool and dry. HEAD: Atraumatic. Normocephalic. EYES: Pupils equal round and reactive. Extraocular motions intact. No scleral icterus. No injection or drainage.tongue midline w/o fasiculations ENT: Throat without erythema, Moist oral mucosa. Airway patent. NECK: Trachea midline. Supple, nontender, no meningeal signs. CARDIOVASCULAR: Regular rate and rhythm without murmurs, gallops, or rubs. RESPIRATORY: Clear to auscultation. Breath sounds equal bilaterally. No wheezes , rales, or rhonchi. GASTROINTESTINAL: Abdomen soft, non-tender, nondistended. No hepato-splenomegaly , or palpable masses. No guarding. MUSCULOSKELETAL: Extremities without clubbing, cyanosis, or edema. No joint tenderness, effusion, or edema noted. No calf tenderness. Negative Homans sign bilaterally. NEUROLOGICAL: Awake and alert. Decreased sensation lower extremity Five out of 5 muscle strength in all muscle groups. Normal speech.Coarse tremor Laboratory Last Impressions Thoracic Spine MRI 10/09/17 0000 Signed Impressions: Service Date/Time: Monday, October 09, 2017 07:28 - CONCLUSION: Negative MRI thoracic spine with and without contrast. Aaron Nova MD Cervical Spine MRI 10/09/17 0000 Signed Impressions: Service Date/Time: Monday, October 09, 2017 07:28 - CONCLUSION: No acute findings or evidence of cord compression. Prior ACF C5-7. Aaron Nova MD Laboratory Tests Test 10/09/17 05:00 10/09/17 06:02 10/09/17 13:53 White Blood Count 12.8 Red Blood Count 4.02 Hemoglobin 10.4 Hematocrit 32.4 Mean Corpuscular Volume 80.5 Mean Corpuscular Hemoglobin 25.9 Mean Corpuscular Hemoglobin Concent 32.2 Red Cell Distribution Width 13.3 Platelet Count 558 Mean Platelet Volume 7.4 Neutrophils (%) (Auto) 67.9 Lymphocytes (%) (Auto) 26.8 Monocytes (%) (Auto) 3.9 Eosinophils (%) (Auto) 0.6 Basophils (%) (Auto) 0.8 Neutrophils # (Auto) 8.6 Lymphocytes # (Auto) 3.4 Monocytes # (Auto) 0.5 Eosinophils # (Auto) 0.1 Basophils # (Auto) 0.1 CBC Comment DIFF FINAL Differential Comment Blood Urea Nitrogen 11 Creatinine 0.81 Random Glucose 114 Calcium Level 9.4 Magnesium Level 2.0 Sodium Level 141 Potassium Level 3.6 Chloride Level 109 Carbon Dioxide Level 27.0 Anion Gap 5 Estimat Glomerular Filtration Rate 80 Total Creatine Kinase 53 Urine Color YELLOW Urine Turbidity SL CLOUDY Urine pH 6.0 Urine Specific [place] LESS/EQUAL 1.005 Urine Protein NEG Urine Glucose (UA) NEG Urine Ketones NEG Urine Occult Blood TRACE Urine Nitrite NEG Urine Bilirubin NEG Urine Urobilinogen 0.2 Urine Leukocyte Esterase SMALL Urine RBC 0-3 Urine WBC 0-2 Urine Squamous Epithelial Cells 6-8 Urine Bacteria FEW Microscopic Urinalysis Comment CULT NOT INDICATED Prothrombin Time 10.5 Prothromb Time International Ratio 1.0 Activated Partial Thromboplast Time 24.4 C-Reactive Protein LESS THAN 0.29 Date/Time Source Procedure Growth Status 10/09/17 13:53 Blood Peripheral Aerobic Blood Culture Pending Received 10/09/17 13:53 Blood Peripheral Anaerobic Blood Culture Pending Received Result Diagram: 10/09/17 0500 10/09/17 0500 Imaging Last Impressions Thoracic Spine MRI 10/09/17 0000 Signed Impressions: Service Date/Time: Monday, October 09, 2017 07:28 - CONCLUSION: Negative MRI thoracic spine with and without contrast. Aaron Nova MD Cervical Spine MRI 10/09/17 0000 Signed Impressions: Service Date/Time: Monday, October 09, 2017 07:28 - CONCLUSION: No acute findings or evidence of cord compression. Prior ACF C5-7. Aaron Nova MD Caprini VTE Risk Assessment Caprini VTE Risk Assessment: No/Low Risk (score <= 1) Caprini Risk Assessment Model Point Value = 1 Point Value = 2 Point Value = 3 Point Value = 5 Age 41-60 Minor surgery BMI > 25 kg/m2 Swollen legs Varicose veins or History of unexplained or recurrent spontaneous Oral contraceptives or hormone replacement Sepsis (< 1 month) Serious lung disease, including pneumonia (< 1 month) Abnormal pulmonary function Acute myocardial infarction Congestive heart failure (< 1 month) History of inflammatory bowel disease Medical patient at bed rest Age 61-74 Arthroscopic surgery Major open surgery (> 45 min) Laparoscopic surgery (> 45 min) Malignancy Confined to bed (> 72 hours) Immobilizing plaster cast Central venous access Age >= 75 History of VTE Family history of VTE Factor V Leiden Prothrombin [id number] Lupus anticoagulant Anticardiolipin antibodies Elevated serum homocysteine Heparin-induced thrombocytopenia Other congenital or acquired thrombophilia Stroke (< 1 month) Elective arthroplasty Hip, pelvis, or leg fracture Acute spinal cord injury (< 1 month) Prophylaxis Regimen Total Risk Factor Score Risk Level Prophylaxis Regimen 0-1 Low Early ambulation 2 Moderate Order ONE of the following: *Sequential Compression Device (SCD) *Heparin 5000 units SQ BID 3-4 Higher Order ONE of the following medications: *Heparin 5000 units SQ TID *Enoxaparin/Lovenox 40 mg SQ daily (WT < 150 kg, CrCl > 30 mL/min) *Enoxaparin/Lovenox 30 mg SQ daily (WT < 150 kg, CrCl > 10-29 mL/min) *Enoxaparin/Lovenox 30 mg SQ BID (WT < 150 kg, CrCl > 30 mL/min) AND/OR *Sequential Compression Device (SCD) 5 or more Highest Order ONE of the following medications: *Heparin 5000 units SQ TID (Preferred with Epidurals) *Enoxaparin/Lovenox 40 mg SQ daily (WT < 150 kg, CrCl > 30 mL/min) *Enoxaparin/Lovenox 30 mg SQ daily (WT < 150 kg, CrCl > 10-29 mL/min) *Enoxaparin/Lovenox 30 mg SQ BID (WT < 150 kg, CrCl > 30 mL/min) AND *Sequential Compression Device (SCD) Assessment and Plan Problem List: (1) Sensory deficit, bilateral ICD Codes: R41.89 - Other symptoms and signs involving cognitive functions and awareness Status: Acute Plan: Admitted with progressive paresthesias and weakness over the last 48 hours. Seen by neurology, MRI of the brain ordered as well as LP. Neuro checks (2) Chronic pain syndrome ICD Codes: G89.4 - Chronic pain syndrome Status: Chronic Plan: continue gabapentin and cymbalta avoid nsaids for now, she uses trazadone for sleep with the pain (3) Depression ICD Codes: F32.9 - Major depressive disorder, single episode, unspecified Status: Chronic Plan: continue cymbalta, Problem Qualifiers (1) Depression: Qualified Codes: F32.9 - Major depressive disorder, single episode, unspecified Rocio Mnedoza MD October 09, 2017 16:27
[2017-10-09] MEDS: GABAPENTIN 400 MG CAP PO SCH (17:22)
--- NOTE | 2017-10-09 19:13 | RADRPT ---
EXAM DATE/TIME: 10/09/2017 18:48 [facility] COMPARISON: No previous studies available for comparison. INDICATIONS : Inability to ambulate. Weakness, tremors. CONTRAST: 15 cc Omniscan (gadodiamide) IV MEDICAL HISTORY : None. SURGICAL HISTORY : Fusion, cervical. Fusion, lumbar. ENCOUNTER: Initial ACUITY: 2 day PAIN SCORE: 0/10 LOCATION: cranial TECHNIQUE: Multiplanar, multisequence MRI of the brain was performed both prior to and following the administrat ion of paramagnetic contrast. FINDINGS: CEREBRUM: The ventricles are normal for age. No evidence of midline shift, mass lesion, hemorrhage or acute in farction. No extraaxial fluid collections are seen. The pituitary gland and suprasellar cistern are normal in configuration. WHITE MATTER: No significant signal abnormalities are seen in the white matter. POSTERIOR FOSSA: The cerebellum and brainstem are intact. The 4th ventricle is midline. The cerebellopontine angle is unremarkable. The cerebellar tonsils are normal in position. DIFFUSION IMAGING: No focal areas of restricted diffusion are seen. No evidence of acute infarction. EXTRACRANIAL: The visualized portions of the orbits and paranasal sinuses are unremarkable. POST-CONTRAST: No abnormal areas of parenchymal or dural enhancement. No evidence of blood-brain barrier breakdown. CONCLUSION: 1. Unremarkable MRI examination of the brain. Specifically, no acute infarction, mass or hemorrhage. Jesus Moon MD on October 09, 2017 at 19:09 Board Certified Radiologist. This report was verified electronically.
[2017-10-09 20:00] VITALS: BP 125/68; PULSE 99; RESP 20; TEMP 97.8; O2SAT 97
[2017-10-09] MEDS: SODIUM CHLORIDE 0.9% FLUSH 10 ML FLUSH IV FLUSH SCH (21:00)
[2017-10-09] MEDS: DULoxetine HCl DR 30 MG CAP PO SCH (21:01)
[2017-10-09] MEDS: traZODone HCL 100 MG TAB PO SCH (21:18)
[2017-10-10] MEDS: ACETAMINOPHEN/HYDROcodone 325 MG/5 MG TAB PO PRN ×4 (06:32→21:14)
[2017-10-10] MEDS: GABAPENTIN 400 MG CAP PO SCH ×3 (06:32→21:13)
[2017-10-10 06:45] LABS: AUTOMATED NEUTROPHIL # 5.2 TH/MM3 (1.8-7.7); BASOPHIL # 0.1 TH/MM3 (0-0.2); BASOPHIL % 0.9 % (0.0-2.0); EOSINOPHIL # 0.2 TH/MM3 (0-0.4); EOSINOPHIL % 1.6 % (0.0-4.0); HEMATOCRIT 30.3 % (35.0-46.0); HEMOGLOBIN 9.9 GM/DL (11.6-15.3); LYMPHOCYTE # 3.4 TH/MM3 (1.0-4.8); MEAN CELL VOLUME 81.2 FL (80.0-100.0); MEAN CORPUSCULAR HEMOGLOBIN 26.6 PG (27.0-34.0); MEAN CORPUSCULAR HGB CONC 32.8 % (32.0-36.0); MEAN PLATELET VOLUME 7.3 FL (7.0-11.0); MONO % 5.7 % (0.0-8.0); MONOCYTE # 0.5 TH/MM3 (0-0.9); NEUT % 55.8 % (16.0-70.0); PLATELET COUNT 475 TH/MM3 (150-450); RED BLOOD COUNT 3.73 MIL/MM3 (4.00-5.30); RED CELL DISTRIBUTION WIDTH 13.5 % (11.6-17.2); WHITE BLOOD COUNT 9.4 TH/MM3 (4.0-11.0)
[2017-10-10 06:57] LABS: CHLORIDE 109 MEQ/L (98-107); SODIUM (NA) 142 MEQ/L (136-145)
[2017-10-10 07:20] LABS: ALBUMIN 2.9 GM/DL (3.4-5.0); ALKALINE PHOSPHATASE 45 U/L (45-117); ALT (GPT) 22 U/L (10-53); AST (GOT) 10 U/L (15-37); BLOOD UREA NITROGEN 10 MG/DL (7-18); CALCIUM 8.5 MG/DL (8.5-10.1); CREATININE 0.78 MG/DL (0.50-1.00); GLOMERULAR FILTRATION RATE 84 ML/MIN (>89); GLUCOSE,RANDOM 95 MG/DL (74-106); TOTAL BILIRUBIN ADULT 0.2 MG/DL (0.2-1.0); TOTAL PROTEIN 5.9 GM/DL (6.4-8.2)
[2017-10-10 08:00] VITALS: BP 130/69; PULSE 92; RESP 19; TEMP 98.7; O2SAT 95
[2017-10-10] MEDS: SODIUM CHLORIDE 0.9% FLUSH 10 ML FLUSH IV FLUSH SCH ×2 (08:28→21:14)
[2017-10-10] MEDS ORDERED: CYANOCOBALAMIN 1000 MCG/ML VIAL IM ONE (09:00)
[2017-10-10] MEDS ORDERED: NORGESTIMATE ETHINYL ESTRADIOL PO SCH (09:00)
--- NOTE | 2017-10-10 09:54 | PD.RAD ---
Post Procedure Progress Note Pre Procedure Diagnosis: (1) Chronic pain syndrome (2) Neck pain, acute Post Procedure Diagnosis: (1) Chronic pain syndrome (2) Neck pain, acute Procedure Date: October 10, 2017 Supervising Radiologist: Bryan Olguni Proceduralist/Assist: Aundrea Gonzalez, RT(R), RT Jeanna(R) Anesthesia: Local Plan of Activity Patient to Unit: PACU See PACS Report for procedural detail/treatment Spinal Procedure Lumbar Puncture L3-L4 Fluid Removal (CCs): 18 Fluid Description: Clear Puncture Time: 09:37 Bryan Olguin MD October 10, 2017 09:54
[2017-10-10 10:10] LABS: RPR SCREEN FOR REFLEX NON-REACTIVE (NON-REACTVE)
--- NOTE | 2017-10-10 10:13 | RADRPT ---
EXAM DATE/TIME: 10/10/2017 09:30 [facility] COMPARISON: No previous studies available for comparison. INDICATIONS : Patient has been experiencing weakness and shaking, in need of lumbar puncture. MEDICAL HISTORY : Asthma IBS Depression/Anciety SUSAN GERD SURGICAL HISTORY : tonsillectomy L4-L5 fusion ACDD with foraminotomies and iliac bone grafting ENCOUNTER: Initial ACUITY: 2 days PAIN SCORE: 7/10 LUMBAR PUNCTURE TIME: 0937 hours FLUORO TIME: 1.2 minutes IMAGE SERIES: 1 ACCESS LEVEL: L3-4 FLUID: 18 cc of clear CSF was collected and sent to the laboratory for analysis. PROCEDURE : 1. Fluoroscopic guided lumbar puncture. The risks, benefits and alternatives to the procedure were explained and verbal and written consent w as obtained. The site was prepped in sterile fashion. Full sterile technique was used, including ca p, mask, sterile gloves and gown and a large sterile sheet. Hand hygiene and 2% chlorhexidine and/or betadine/alcohol prep was utilized per protocol for cutaneous antisepsis. The skin and subcutaneous tissues were infiltrated with local anesthetic solution. With fluoroscopic guidance the lumbar thecal sac was punctured at the level above. The fluid describ ed above was removed without difficulty. The patient tolerated the procedure well and there were no complications. CONCLUSION: Uncomplicated fluoroscopically guided lumbar puncture. Bryan Olguin MD on October 10, 2017 at 10:11 Board Certified Radiologist. This report was verified electronically.
[2017-10-10 10:26] LABS: RBC TUBE #4 0 /MM3; SUPERNATE COLOR TUBE #1 CLEAR (CLEAR); WBC TUBE #4 0 /MM3 (0-10)
[2017-10-10 11:14] LABS: TOTAL PROTEIN,CSF 26.9 MG/DL (15.0-45.0)
[2017-10-10 12:00] VITALS: BP 99/45; PULSE 71; RESP 19; TEMP 98.2; O2SAT 98
--- NOTE | 2017-10-10 12:20 | HHI.PR ---
Subjective Remarks tired, finally able to sleep, body aches from tremors, states numbness comes and goes in waves Objective Vitals Vital Signs Date Time Temp Pulse Resp B/P (MAP) Pulse Ox O2 Delivery O2 Flow Rate FiO2 10/10/17 08:00 98.7 92 19 130/69 (89) 95 10/09/17 20:00 97.8 99 20 125/68 (87) 97 10/09/17 12:30 97.1 72 16 112/67 (82) 97 10/10/17 10/10/17 10/11/17 14:59 22:59 06:59 Intake Total 120 ml Balance 120 ml Intake Oral 120 ml Result Diagram: 10/10/1718 10/10/1718 Imaging Last Impressions Lumbar Puncture Fluoroscopy 10/10/17 0000 Signed Impressions: Service Date/Time: Tuesday, October 10, 2017 09:30 - CONCLUSION: Uncomplicated fluoroscopically guided lumbar puncture. Bryan Olguin MD Brain MRI 10/09/17 1028 Signed Impressions: Service Date/Time: Monday, October 09, 2017 18:48 - CONCLUSION: 1. Unremarkable MRI examination of the brain. Specifically, no acute infarction, mass or hemorrhage. Jesus Moon MD Thoracic Spine MRI 10/09/17 0000 Signed Impressions: Service Date/Time: Monday, October 09, 2017 07:28 - CONCLUSION: Negative MRI thoracic spine with and without contrast. Aaron Nova MD Cervical Spine MRI 10/09/17 0000 Signed Impressions: Service Date/Time: Monday, October 09, 2017 07:28 - CONCLUSION: No acute findings or evidence of cord compression. Prior ACF C5-7. Aaron Nova MD Objective Remarks lying in bed sleeping wearing nia mask arousable cta rrr ext no scds tremor more pronounced the more awake she is A/P Problem List: (1) Sensory deficit, bilateral ICD Codes: R41.89 - Other symptoms and signs involving cognitive functions and awareness Status: Acute Plan: MRI neg for acute pathology, l-p done today , b-12 was low, received IM labs pending, will have PT see her today SCDs ordered yesterday discussed with nursing (2) Chronic pain syndrome ICD Codes: G89.4 - Chronic pain syndrome Status: Chronic Plan: continue regimen from pain management, prn lortab until temporarily, she got relief from toradol (3) Depression ICD Codes: F32.9 - Major depressive disorder, single episode, unspecified Status: Chronic Plan: continue cymbalta for depression/anxiety and chronic pain trazadone for sleep Problem Qualifiers (1) Depression: Qualified Codes: F32.9 - Major depressive disorder, single episode, unspecified Rocio Mendoza MD October 10, 2017 12:20
[2017-10-10 16:00] VITALS: BP 118/64; PULSE 90; RESP 19; TEMP 98; O2SAT 95
[2017-10-10 20:00] VITALS: BP 132/76; PULSE 91; RESP 20; TEMP 97.2; O2SAT 98
[2017-10-10] MEDS: traZODone HCL 100 MG TAB PO SCH (21:13)
[2017-10-11] VITALS: BP 127/65; PULSE 81; RESP 20; TEMP 97.4; O2SAT 96
[2017-10-11] MEDS: ACETAMINOPHEN/HYDROcodone 325 MG/5 MG TAB PO PRN ×5 (01:31→18:01)
[2017-10-11] MEDS: GABAPENTIN 400 MG CAP PO SCH ×3 (05:27→22:04)
[2017-10-11 08:00] VITALS: BP 111/61; PULSE 66; RESP 19; TEMP 97.8; O2SAT 96
[2017-10-11] MEDS: SODIUM CHLORIDE 0.9% FLUSH 10 ML FLUSH IV FLUSH SCH ×2 (08:26→22:05)
[2017-10-11] MEDS: DULoxetine HCl DR 30 MG CAP PO SCH (08:26)
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
[2017-10-11 09:08] LABS: HSV 1,PCR Negative (Negative)
--- NOTE | 2017-10-11 11:09 | HHI.PR ---
Subjective Remarks Patient feeling a little better since admit still with diffuse tremors and inability to ambulate without walker,under work up by neurology ordered MS panel ,to date negative MRI brain t spine c spine CRP,ESR,b12 was low rest labs stable will await further testing did have LP so far results not fully back what did come back is normal. Objective Vitals GENERAL: SKIN: Warm and dry. HEAD: Atraumatic. Normocephalic. EYES: Pupils equal and round. No scleral icterus. No injection or drainage. ENT: No nasal bleeding or discharge. Mucous membranes pink and moist. NECK: Trachea midline. No JVD. CARDIOVASCULAR: Regular rate and rhythm. RESPIRATORY: No accessory muscle use. Clear to auscultation. Breath sounds equal bilaterally. GASTROINTESTINAL: Abdomen soft, non-tender, nondistended. Hepatic and splenic margins not palpable. MUSCULOSKELETAL: Extremities without clubbing, cyanosis, or edema. No obvious deformities. NEUROLOGICAL: Awake and alert. No obvious cranial nerve deficits. Motor grossly within normal limits. 3 out of 5 muscle strength in the arms and legs. Normal speech. does have significant tremors PSYCHIATRIC: Appropriate mood and affect; insight and judgment normal. Vital Signs Date Time Temp Pulse Resp B/P (MAP) Pulse Ox O2 Delivery O2 Flow Rate FiO2 10/11/17 08:00 97.8 66 19 111/61 (78) 96 10/11/17 00:00 97.4 81 20 127/65 (85) 96 10/10/17 20:00 97.2 91 20 132/76 (94) 98 10/10/17 16:00 98.0 90 19 118/64 (82) 95 10/10/17 12:00 98.2 71 19 99/45 (63) 98 10/11/17 10/11/17 10/12/17 15:00 23:00 07:00 Intake Total 120 ml Balance 120 ml Intake Oral 120 ml Result Diagram: 10/10/1718 10/10/1718 Imaging Last Impressions Lumbar Puncture Fluoroscopy 10/10/17 0000 Signed Impressions: Service Date/Time: Tuesday, October 10, 2017 09:30 - CONCLUSION: Uncomplicated fluoroscopically guided lumbar puncture. Bryan Olguin MD Brain MRI 10/09/17 1028 Signed Impressions: Service Date/Time: Monday, October 09, 2017 18:48 - CONCLUSION: 1. Unremarkable MRI examination of the brain. Specifically, no acute infarction, mass or hemorrhage. Jesus Moon MD Thoracic Spine MRI 10/09/17 0000 Signed Impressions: Service Date/Time: Monday, October 09, 2017 07:28 - CONCLUSION: Negative MRI thoracic spine with and without contrast. Aaron Nova MD Cervical Spine MRI 10/09/17 0000 Signed Impressions: Service Date/Time: Monday, October 09, 2017 07:28 - CONCLUSION: No acute findings or evidence of cord compression. Prior ACF C5-7. Aaron Nova MD Objective Remarks lying in bed sleeping wearing nia mask arousable cta rrr ext no scds tremor more pronounced the more awake she is A/P Problem List: (1) Sensory deficit, bilateral ICD Codes: R41.89 - Other symptoms and signs involving cognitive functions and awareness Status: Acute Plan: MRI neg for acute pathology, l-p done today , b-12 was low, received IM labs negative so far PT saw patient and has walker will need in patient rehab once hospital work up completed as per neurology SCDs ordered yesterday discussed with nursing (2) Chronic pain syndrome ICD Codes: G89.4 - Chronic pain syndrome Status: Chronic Plan: continue regimen from pain management, prn lortab until temporarily, she got relief from toradol (3) Depression ICD Codes: F32.9 - Major depressive disorder, single episode, unspecified Status: Chronic Plan: continue cymbalta for depression/anxiety and chronic pain trazadone for sleep Assessment and Plan will ask for case management to see plan for rehab Discharge Planning as above Problem Qualifiers (1) Depression: Qualified Codes: F32.9 - Major depressive disorder, single episode, unspecified Cole Salazar MD October 11, 2017 11:09
[2017-10-11 12:00] VITALS: BP 119/64; PULSE 78; RESP 20; TEMP 96.9; O2SAT 96
[2017-10-11 16:00] VITALS: BP 116/80; PULSE 92; RESP 20; TEMP 98.4; O2SAT 97
[2017-10-11] MEDS ORDERED: CYANOCOBALAMIN 1000 MCG/ML VIAL IM SCH (18:00)
[2017-10-11 20:00] VITALS: BP 124/64; PULSE 81; RESP 20; TEMP 96.2; O2SAT 98
[2017-10-11] MEDS: traZODone HCL 100 MG TAB PO SCH (22:04)
[2017-10-12] VITALS: BP 120/78; PULSE 82; RESP 18; TEMP 97; O2SAT 98
[2017-10-12 00:21] LABS: ENTEROVIRUS PCR RESULT Negative (Negative); ENTEROVIRUS PCR SPEC SOURCE CSF
[2017-10-12] MEDS: ACETAMINOPHEN/HYDROcodone 325 MG/5 MG TAB PO PRN ×5 (06:10→22:47)
[2017-10-12] MEDS: GABAPENTIN 400 MG CAP PO SCH ×3 (06:10→21:27)
[2017-10-12 06:40] LABS: AUTOMATED NEUTROPHIL # 5.5 TH/MM3 (1.8-7.7); BASOPHIL # 0.1 TH/MM3 (0-0.2); EOSINOPHIL # 0.2 TH/MM3 (0-0.4); EOSINOPHIL % 2.4 % (0.0-4.0); HEMATOCRIT 33.9 % (35.0-46.0); HEMOGLOBIN 10.8 GM/DL (11.6-15.3); LYMPH % 30.1 % (9.0-44.0); LYMPHOCYTE # 2.8 TH/MM3 (1.0-4.8); MEAN CELL VOLUME 81.5 FL (80.0-100.0); MEAN CORPUSCULAR HEMOGLOBIN 25.9 PG (27.0-34.0); MEAN CORPUSCULAR HGB CONC 31.8 % (32.0-36.0); MEAN PLATELET VOLUME 7.3 FL (7.0-11.0); MONO % 5.1 % (0.0-8.0); MONOCYTE # 0.5 TH/MM3 (0-0.9); NEUT % 61.4 % (16.0-70.0); PLATELET COUNT 531 TH/MM3 (150-450); RED BLOOD COUNT 4.16 MIL/MM3 (4.00-5.30); RED CELL DISTRIBUTION WIDTH 13.7 % (11.6-17.2); WHITE BLOOD COUNT 9.1 TH/MM3 (4.0-11.0)
[2017-10-12 06:53] LABS: CHLORIDE 108 MEQ/L (98-107); SODIUM (NA) 142 MEQ/L (136-145)
[2017-10-12 06:57] LABS: CALCIUM 9.1 MG/DL (8.5-10.1)
[2017-10-12 06:58] LABS: ALBUMIN 3.2 GM/DL (3.4-5.0); BICARBONATE 30.3 MEQ/L (21.0-32.0); BLOOD UREA NITROGEN 9 MG/DL (7-18); GLUCOSE,RANDOM 92 MG/DL (74-106)
[2017-10-12 07:01] LABS: ALT (GPT) 39 U/L (10-53); AST (GOT) 19 U/L (15-37); CREATININE 0.74 MG/DL (0.50-1.00); GLOMERULAR FILTRATION RATE 89 ML/MIN (>89)
[2017-10-12 07:03] LABS: TOTAL BILIRUBIN ADULT 0.3 MG/DL (0.2-1.0); TOTAL PROTEIN 6.8 GM/DL (6.4-8.2)
[2017-10-12 07:04] LABS: ALKALINE PHOSPHATASE 54 U/L (45-117)
[2017-10-12 07:34] VITALS: BP 121/80; PULSE 79; RESP 20; TEMP 96.4; O2SAT 98
[2017-10-12] MEDS: DULoxetine HCl DR 30 MG CAP PO SCH (09:18)
[2017-10-12] MEDS: SODIUM CHLORIDE 0.9% FLUSH 10 ML FLUSH IV FLUSH SCH ×2 (09:18→21:28)
[2017-10-12] MEDS ORDERED: KETOROLAC TROMETHAMINE 60 MG/2 ML (IM) VIAL IM ONE (11:00)
[2017-10-12 11:03] LABS: % SATURATION IRON PROFILE 5.8 % (20-50); IRON (FE) 33 MCG/DL (50-170); TOTAL IRON BINDING CAPACITY 566 MCG/DL (250-450)
--- NOTE | 2017-10-12 11:04 | HHI.PR ---
Subjective Remarks Patient tremors about the same ,having severe headache today will give Morphine IV times one will observe today will need rehab neurology has cleared patient for discharge i will come back later and see how she feels also with nausea add zofran iv Objective Vitals GENERAL: SKIN: Warm and dry. HEAD: Atraumatic. Normocephalic. EYES: Pupils equal and round. No scleral icterus. No injection or drainage. ENT: No nasal bleeding or discharge. Mucous membranes pink and moist. NECK: Trachea midline. No JVD. CARDIOVASCULAR: Regular rate and rhythm. RESPIRATORY: No accessory muscle use. Clear to auscultation. Breath sounds equal bilaterally. GASTROINTESTINAL: Abdomen soft, non-tender, nondistended. Hepatic and splenic margins not palpable. MUSCULOSKELETAL: Extremities without clubbing, cyanosis, or edema. No obvious deformities. NEUROLOGICAL: Awake and alert. No obvious cranial nerve deficits. Motor grossly within normal limits. 3 out of 5 muscle strength in the arms and legs. Normal speech. some tremor PSYCHIATRIC: Appropriate mood and affect; insight and judgment normal. Vital Signs Date Time Temp Pulse Resp B/P (MAP) Pulse Ox O2 Delivery O2 Flow Rate FiO2 10/12/17 07:34 96.4 79 20 121/80 (94) 98 10/12/17 07:10 18 10/12/17 00:00 97.0 82 18 120/78 (92) 98 10/11/17 20:00 96.2 81 20 124/64 (84) 98 10/11/17 16:00 98.4 92 20 116/80 (92) 97 10/11/17 12:00 96.9 78 20 119/64 (82) 96 Result Diagram: 10/12/17 0620 10/12/17 0620 Imaging Last Impressions Lumbar Puncture Fluoroscopy 10/10/17 0000 Signed Impressions: Service Date/Time: Tuesday, October 10, 2017 09:30 - CONCLUSION: Uncomplicated fluoroscopically guided lumbar puncture. Bryan Olguin MD Brain MRI 10/09/17 1028 Signed Impressions: Service Date/Time: Monday, October 09, 2017 18:48 - CONCLUSION: 1. Unremarkable MRI examination of the brain. Specifically, no acute infarction, mass or hemorrhage. Jesus Moon MD Thoracic Spine MRI 10/09/17 0000 Signed Impressions: Service Date/Time: Monday, October 09, 2017 07:28 - CONCLUSION: Negative MRI thoracic spine with and without contrast. Aaron Nova MD Cervical Spine MRI 10/09/17 0000 Signed Impressions: Service Date/Time: Monday, October 09, 2017 07:28 - CONCLUSION: No acute findings or evidence of cord compression. Prior ACF C5-7. Aaron Nova MD Objective Remarks lying in bed sleeping wearing nia mask arousable cta rrr ext no scds tremor more pronounced the more awake she is A/P Problem List: (1) Sensory deficit, bilateral ICD Codes: R41.89 - Other symptoms and signs involving cognitive functions and awareness Status: Acute Plan: MRI neg for acute pathology, l-p done today , b-12 was low, received IM labs negative so far PT saw patient and has walker will need in patient rehab once hospital work up completed as per neurology SCDs ordered yesterday discussed with nursing LP results so far negative will need follow up with neurology (2) Chronic pain syndrome ICD Codes: G89.4 - Chronic pain syndrome Status: Chronic Plan: continue regimen from pain management, prn lortab until temporarily, she got relief from toradol did have headache given one dose morphine (3) Depression ICD Codes: F32.9 - Major depressive disorder, single episode, unspecified Status: Chronic Plan: continue cymbalta for depression/anxiety and chronic pain trazadone for sleep Assessment and Plan case management to see plan for rehab today or tomorrow Discharge Planning as above Problem Qualifiers (1) Depression: Qualified Codes: F32.9 - Major depressive disorder, single episode, unspecified Cole Salazar MD October 12, 2017 11:04
[2017-10-12] MEDS ORDERED: MORPHINE SULFATE 4 MG/ML INJ IV PUSH ONE (11:15)
[2017-10-12 11:30] VITALS: BP 123/68; PULSE 82; RESP 20; TEMP 96.4; O2SAT 96
[2017-10-12] MEDS: ONDANSETRON HCL 4 MG/2 ML VIAL IV PUSH PRN ×2 (11:31→16:28)
[2017-10-12 15:20] VITALS: BP 132/66; PULSE 78; RESP 20; TEMP 96.8; O2SAT 96
[2017-10-12 20:00] VITALS: BP 116/61; PULSE 79; RESP 20; TEMP 98.4; O2SAT 96
[2017-10-12] MEDS ORDERED: MORPHINE SULFATE 4 MG/ML INJ IV ONE (21:15)
[2017-10-12] MEDS: traZODone HCL 100 MG TAB PO SCH (21:28)
[2017-10-12] MEDS ORDERED: methylPREDNISolone SOD SUCC 125 MG/2 ML VIAL IV SCH (23:45)
[2017-10-12 23:51] LABS: CSF CRYPTOCOCCUS ANTIGEN NOT DETECTED (NEGATIVE); VDRL CSF NON-REACTIVE (NON-REACTVE)
[2017-10-13] VITALS: BP 126/67; PULSE 80; RESP 20; TEMP 96.5; O2SAT 97
[2017-10-13] MEDS: ACETAMINOPHEN/HYDROcodone 325 MG/5 MG TAB PO PRN ×4 (02:55→14:39)
[2017-10-13] MEDS: GABAPENTIN 400 MG CAP PO SCH ×2 (06:30→14:39)
[2017-10-13 06:47] LABS: AUTOMATED NEUTROPHIL # 9.7 TH/MM3 (1.8-7.7); BASOPHIL % 0.2 % (0.0-2.0); EOSINOPHIL % 0.1 % (0.0-4.0); HEMATOCRIT 34.9 % (35.0-46.0); HEMOGLOBIN 11.3 GM/DL (11.6-15.3); LYMPH % 8.4 % (9.0-44.0); LYMPHOCYTE # 0.9 TH/MM3 (1.0-4.8); MEAN CELL VOLUME 81.7 FL (80.0-100.0); MEAN CORPUSCULAR HEMOGLOBIN 26.4 PG (27.0-34.0); MEAN CORPUSCULAR HGB CONC 32.4 % (32.0-36.0); MEAN PLATELET VOLUME 7.4 FL (7.0-11.0); MONO % 0.2 % (0.0-8.0); NEUT % 91.1 % (16.0-70.0); PLATELET COUNT 543 TH/MM3 (150-450); RED BLOOD COUNT 4.28 MIL/MM3 (4.00-5.30); RED CELL DISTRIBUTION WIDTH 13.3 % (11.6-17.2); WHITE BLOOD COUNT 10.6 TH/MM3 (4.0-11.0)
[2017-10-13 08:00] VITALS: BP 129/77; PULSE 84; RESP 18; TEMP 97; O2SAT 94
[2017-10-13] MEDS: DULoxetine HCl DR 30 MG CAP PO SCH (08:33)
[2017-10-13] MEDS: SODIUM CHLORIDE 0.9% FLUSH 10 ML FLUSH IV FLUSH SCH (08:33)
[2017-10-13] MEDS ORDERED: FERROUS SULFATE 325 MG (65 MG ELEMENTAL IRON) TAB PO SCH (09:00)
[2017-10-13 09:58] LABS: CSF CRYPTOCOCCUS AG CONF ND (NOT DETECTD)
[2017-10-13] MEDS ORDERED: FERR325T20 PO (10:57)
[2017-10-13] MEDS ORDERED: HYDR-3516 PO (10:57)
[2017-10-13] MEDS ORDERED: methylPREDNISolone SOD SUCC 125 MG/2 ML VIAL IV PUSH ONE (11:00)
[2017-10-13] MEDS ORDERED: POLYETHYLENE GLYCOL 17 GM PKG PO ONE (11:00)
--- NOTE | 2017-10-13 11:07 | HHI.DS ---
Discharge Summary Admission Date October 09, 2017 at 11:01 Discharge Date: October 13, 2017 Admitting Diagnosis bilat lower extremity weakness (1) Sensory deficit, bilateral Diagnosis: Principal ICD Codes: R41.89 - Other symptoms and signs involving cognitive functions and awareness Status: Acute (2) Chronic pain syndrome Diagnosis: Principal ICD Codes: G89.4 - Chronic pain syndrome Status: Chronic (3) Depression Diagnosis: Secondary ICD Codes: F32.9 - Major depressive disorder, single episode, unspecified Status: Chronic Consultants neurology Procedures LP MRI MRA Brief History Patient admitted for inability to ambulate with tremors ,headache CBC/BMP: 10/13/17 0610 10/12/17 0620 Significant Findings Laboratory Tests Test 10/12/17 06:20 10/13/17 06:10 Hemoglobin 10.8 GM/DL (11.6-15.3) 11.3 GM/DL (11.6-15.3) Hematocrit 33.9 % (35.0-46.0) 34.9 % (35.0-46.0) Mean Corpuscular Hemoglobin 25.9 PG (27.0-34.0) 26.4 PG (27.0-34.0) Mean Corpuscular Hemoglobin Concent 31.8 % (32.0-36.0) Platelet Count 531 TH/MM3 (150-450) 543 TH/MM3 (150-450) Albumin 3.2 GM/DL (3.4-5.0) Chloride Level 108 MEQ/L (98-107) Anion Gap 4 MEQ/L (5-15) Iron Level 33 MCG/DL (50-170) Total Iron Binding Capacity 566 MCG/DL (250-450) Percent Iron Saturation 5.8 % (20-50) Neutrophils (%) (Auto) 91.1 % (16.0-70.0) Lymphocytes (%) (Auto) 8.4 % (9.0-44.0) Neutrophils # (Auto) 9.7 TH/MM3 (1.8-7.7) Lymphocytes # (Auto) 0.9 TH/MM3 (1.0-4.8) PE at Discharge lying in bed sleeping wearing nia mask arousable cta rrr ext no scds tremor more pronounced the more awake she is Transfer Summary patient admitted with neurology consult with underlying work up for MS and had negative MRI brain,t spine and c spine had LP negative to date for MS continued since admit to have persistent headache which did eventually respond to IV solumedrol 250mg will continue on follow up in rehab she has progressed with ambulation with walker and i will transfer her to rehab to continue rehab and see how she does. Had negative TINA,CRP ,ESR,RPR ,Vit b12 low as was iron on supplementation HSV negative. Will get MRA brain and MRA carotids before discharge and will follow up results. Pt Condition on Discharge: Fair Discharge Disposition: Discharge to SNF Discharge Instructions DIET: Follow Instructions for: Heart Healthy Diet Activities you can perform: Regular-No Restrictions Other Activity Instructions: needs walker and plan is for rehab PT New Medications: Ferrous Sulfate (Ferosul) 325 Mg (65 Mg Iron) Tablet 325 MG PO DAILY for low iron for 14 Days, #14 BOTTLE Hydrocodone/Acetaminophen (Hydrocodone-Acetamin 5-325 mg) 5 Mg-325 Mg Tablet 1 TAB PO Q4H PRN for PAIN SCALE 1 TO 5 for 3 Days, #12 BOTTLE Continued Medications: Albuterol 18 GM Inh (Ventolin Hfa 18 GM Inh) 90 Mcg/Act Aer 2 PUFF INH Q4H PRN for SHORTNESS OF BREATH, #1 INHALER 0 Refills Dicyclomine (Dicyclomine) 10 Mg Cap 10 MG PO TID for Bowel Management, CAP [address] (Duloxetine DR) 30 Mg Capdr 30 MG PO DAILY, #30 CAP 0 Refills Fenofibrate (Fenofibrate) 145 Mg Tab 145 MG PO DAILY, #30 TAB 0 Refills Gabapentin (Gabapentin) 800 Mg Tab 1200 MG PO TID, #90 TAB 0 Refills Meloxicam (Meloxicam) 15 Mg Tab 15 MG PO DAILY for Arthritis Pain, #30 TAB 0 Refills Norgestimate-Ethinyl Estradiol (Ortho Tri-Cyclen) 0.18/0.215/0.25 mg-35 Mcg Tab 1 TAB PO DAILY for Control, #1 PACK 0 Refills Trazodone (Trazodone) 100 Mg Tablet 100 MG PO HS for Control Depression, #30 TAB 0 Refills Additional Information will arrange follow up with Dr. Pratt as outpatient Cole Salazar MD October 13, 2017 11:07
[2017-10-13 12:11] VITALS: BP 138/81; PULSE 95; RESP 18; TEMP 98.7; O2SAT 96
[2017-10-13] MEDS: ONDANSETRON HCL 4 MG/2 ML VIAL IV PUSH PRN (14:43)
--- NOTE | 2017-10-13 14:43 | RADRPT ---
EXAM DATE: 10/13/2017 2:28 PM EDT AGE/SEX: 37 years / Female INDICATIONS: Cephalgia. Weakness in bilateral legs and tremors. CLINICAL DATA: This is the patient's subsequent encounter. Patient reports that signs and symptoms h ave been present for 3 days and indicates a pain score of 0/10. MEDICAL/SURGICAL HISTORY: None. Tonsillectomy. Fusion, cervical. Fusion, lumbar. COMPARISON: No prior [place] exams available for comparison. TECHNIQUE: 3D [id number] MRA was performed. Source images, multiplanar STS MIP, and 3D volum e MIP reconstructions were reviewed. FINDINGS: Examination somewhat limited by patient motion. Anterior Circulation: Intracranial Carotid Arteries: Patent. CALVIN: There is no evidence for aneurysm, vessel truncation or stenosis, and no evidence for vascular m alformation. MCA: There is no evidence for aneurysm, vessel truncation or stenosis, and no evidence for vascular m alformation. Posterior Circulation: Distal Vertebral Arteries: Distal Vertebral arteries are symmetrical and patent. Basilar Artery: There is no evidence for aneurysm, vessel truncation or stenosis, and no evidence for vascular malformation. HALL MONITOR and Cerebellar Branches: There is no evidence for aneurysm, vessel truncation or stenosis, and no evidence for vascular malformation. CONCLUSION: 1. Negative MRA Head ([place]) non contrast. Electronically signed by: Jesus Moon MD 10/13/2017 2:42 PM EDT
[2017-10-13] MEDS ORDERED: GADODIAMIDE PF 287 MG/ML 20 ML VIAL (for RAD MRI) IVCONTRAST ONE (15:11)
[2017-10-13 16:11] VITALS: BP 126/75; PULSE 85; RESP 18; TEMP 97.1; O2SAT 94
--- NOTE | 2017-10-13 16:25 | RADRPT ---
EXAM DATE: 10/13/2017 2:36 PM EDT AGE/SEX: 37 years / Female INDICATIONS: Stroke. Cephalgia with bilateral lower extremity weakness. CLINICAL DATA: This is the patient's subsequent encounter. Patient reports that signs and symptoms h ave been present for 3 days and indicates a pain score of 0/10. MEDICAL/SURGICAL HISTORY: None. Tonsillectomy. Fusion, cervical. Fusion, lumbar. COMPARISON: [facility], MRI BRAIN W & W/O CONTRAST, 10/09/2017. . TECHNIQUE: 20 ml Omniscan (gadodiamide) contrast infused MRA (single exam dose) of the extracranial circulation was performed using a neurovascular coil. Postprocessing was performed, including rotat ing sub-volume maximum intensity projections of each carotid artery, rotating full-volume maximum int ensity projections of both carotid arteries, sagittal and coronal sliding thin-slab reformations of e ach carotid artery, and left oblique sliding thin-slab reformation through the aortic arch to include the origin of the arch branch vessels. FINDINGS: Aortic Arch : There is a three-vessel origin of the great vessels from the aorta. No evidence of o stial narrowing. Right Carotid : The common carotid artery is intact. The carotid bulb has a normal configuration wi thout ulceration or narrowing. The internal carotid artery lumen is smooth without stenosis. The ex ternal carotid artery is intact. Left Carotid : The common carotid artery is intact. The carotid bulb has a normal configuration wit hout ulceration or narrowing. The internal carotid artery lumen is smooth without stenosis. The ext ernal carotid artery is intact. Vertebrals : The vertebral arteries have a symmetric diameter. No stenotic lesions are seen. CONCLUSION: 1. Normal 2. No evidence of intimal dissection, significant stenosis, luminal irregularity or vasculopathy. Percent stenosis is calculated using the diameter of the stenotic region over the diameter of the nor mal distal internal carotid artery Electronically signed by: Catalino Tsang MD 10/13/2017 4:23 PM [facility]
[2017-10-13 16:30] VITALS: RESP 18
== END 2017-10-13 17:35 | DRG 556 ==
LOC: PHED 05:01 → PHEDA 11:01 → PH3A 11:40
PROVIDERS: ADMIT Legal Medicine; ATTEND Legal Medicine
PROC: 009U3ZX Drainage of Spinal Canal, Percutaneous Approach, Diagnostic (ICD-10-PCS; principal; 2017-10-10)
DX: M62.81 Muscle weakness (generalized) (principal); F32.9 Major depressive disorder, single episode, unspecified; R25.1 Tremor, unspecified; E78.5 Hyperlipidemia, unspecified; G47.33 Obstructive sleep apnea (adult) (pediatric); G89.4 Chronic pain syndrome; K58.9 Irritable bowel syndrome, unspecified; J45.909 Unspecified asthma, uncomplicated; D72.829 Elevated white blood cell count, unspecified; K21.9 Gastro-esophageal reflux disease without esophagitis; M54.2 Cervicalgia; F51.5 Nightmare disorder; R51 Headache; F41.8 Other specified anxiety disorders; Z87.891 Personal history of nicotine dependence; Z98.1 Arthrodesis status
CPT/HCPCS: 62270; 70544; 70548; 70553; 72156; 72157; 77003; 80048; 80053; 81001; 82040; 82042; 82164; 82550; 82607; 82784; 82945; 83540; 83550; 83735; 83873; 83916; 84157; 84703; 85025; 85610; 85652; 85730; 86038; 86140; 86403; 86592; 87040; 87070; 87205; 87498; 87529; 89051; 96361; 96374; A9579; J1885; J2270; J2405; J2930; J3420; J7030

== ENCOUNTER 2017-10-22 03:56 | Emergency (ER) | payer SELFPAY ==
[~2017-10-22] VITALS: Ht 167.6 cm; Wt 78.8 kg
[~2017-10-22 03:56] MED LIST changes: -BUPR150CR PO; +FERR325T20 PO; -GABA400C5 PO; +HYDR-3516 PO
[2017-10-22 04:06] VITALS: BP 105/57; PULSE 89; RESP 20; TEMP 98; O2SAT 98
[2017-10-22 04:23] VITALS: BP 105/57; PULSE 89; RESP 20; TEMP 98; O2SAT 98
[2017-10-22] MEDS ORDERED: SODIUM CHLOR 0.9% 1000 ML INJ 1,000 ML IV ONE (04:45)
--- NOTE | 2017-10-22 04:46 | PD ---
HPI Chief Complaint: Musculoskeletal Complaint Time Seen by Provider: 04:37 Travel History International Travel<30 days: No Contact w/Intl Traveler<30days: No Traveled to known affect area: No History of Present Illness HPI Patient presents to the emergency department complaining of hands and feet linus and cramping since . Was discharged from the hospital 2 weeks ago for lower extremity weakness, the patient is uncertain of her diagnosis she denies fever, chills, diarrhea, nausea, vomiting, swelling, chest pain, shortness of breath. Patient states that she ran out of her pain medications on yesterday. He was on [place] 5/325 1 tab p.o. every 4 hours as needed. PFSH Past Medical History Asthma: Yes Anxiety: Yes Depression: Yes Cancer: Yes (breast 2003) Cardiovascular Problems: Yes High Cholesterol: No Diabetes: No Diminished Hearing: No Endocrine: No Gastrointestinal Disorders: Yes (IBS) Genitourinary: No Headaches: Yes Musculoskeletal: Yes (tremors/weakness) Neurologic: Yes Psychiatric: No Reproductive: No Respiratory: No Immunizations Current: Yes Sleep Apnea: No Thyroid Disease: No ?: Not : 0 Para: 0 Past Surgical History Body Medical Devices: TITANIUM SCREWS IN LOWER BACK 6 IN NECK Tonsillectomy: Yes (ADDENOIDS) Other Surgery: Yes (wrist sx ) Social History Alcohol Use: Yes (SOCIAL) Tobacco Use: No (quit 2 years ago) Substance Use: No Allergies-Medications (Allergen,Severity, Reaction): Coded Allergies: No Known Allergies (Unverified Adverse Reaction, Unknown, 10/09/17) Reported Meds & Prescriptions Reported Meds & Active Scripts Active [place] (Hydrocodone-Acetaminophen) 5 Mg-325 Mg Tab 1 Tab PO Q6H PRN 3 Days Ferosul (Ferrous Sulfate) 325 Mg (65 Mg Iron) Tablet 325 Mg PO DAILY 14 Days Hydrocodone-Acetamin 5-325 mg (Hydrocodone/Acetaminophen) 5 Mg-325 Mg Tablet 1 Tab PO Q4H PRN [address] (Duloxetine HCl) 30 Mg Capdr 30 Mg PO DAILY Meloxicam 15 Mg Tab 15 Mg PO DAILY Gabapentin 800 Mg Tab 1,200 Mg PO TID Trazodone (Trazodone HCl) 100 Mg Tablet 100 Mg PO HS Fenofibrate 145 Mg Tab 145 Mg PO DAILY Dicyclomine (Dicyclomine HCl) 10 Mg Cap 10 Mg PO TID Ortho Tri-Cyclen (Norgestimate-Ethinyl Estradiol) 0.18/0.215/0.25 mg-35 Mcg Tab 1 Tab PO DAILY Ventolin Hfa 18 GM Inh (Albuterol Sulfate) 90 Mcg/Act Aer 2 Puff INH Q4H PRN Review of Systems Except as stated in HPI: all other systems reviewed are Neg Physical Exam Narrative GENERAL: No acute distress. SKIN: Focused skin assessment warm/dry. HEAD: Atraumatic. Normocephalic. EYES: Pupils equal and round. Her ocular muscles intact bilaterally. No scleral icterus. No injection or drainage. ENT: No nasal bleeding or discharge. Mucous membranes pink and moist. NECK: Trachea midline. No JVD. CARDIOVASCULAR: Regular rate and rhythm. No murmur appreciated. RESPIRATORY: No accessory muscle use. Clear to auscultation. Breath sounds equal bilaterally. GASTROINTESTINAL: Abdomen soft, non-tender, nondistended. Hepatic and splenic margins not palpable. MUSCULOSKELETAL: No obvious deformities. No clubbing. No cyanosis. No edema. Full range of motion. NEUROLOGICAL: Awake and alert. No obvious cranial nerve deficits. Motor grossly within normal limits. Normal speech. PSYCHIATRIC: Appropriate mood and affect; insight and judgment normal. Data Data Last Documented VS Vital Signs Date Time Temp Pulse Resp B/P (MAP) Pulse Ox O2 Delivery O2 Flow Rate FiO2 10/22/17 05:23 73 20 95/50 (65) 96 10/22/17 04:23 98.0 Orders Orders Complete Blood Count With Diff (10/22/17 04:43) Comprehensive Metabolic Panel (10/22/17 04:43) Creatine Kinase (Cpk) (10/22/17 04:43) Magnesium (Mg) (10/22/17 04:43) Sodium Chlor 0.9% 1000 Ml Inj (Ns 1000 M (10/22/17 04:45) Acetamin-Hydrocod 325-5 Mg ([place] 5-325 (10/22/17 05:30) Ed Discharge Order (10/22/17 06:04) Labs Laboratory Tests Test 10/22/17 04:50 White Blood Count 9.5 TH/MM3 Red Blood Count 4.04 MIL/MM3 Hemoglobin 10.4 GM/DL Hematocrit 33.0 % Mean Corpuscular Volume 81.6 FL Mean Corpuscular Hemoglobin 25.6 PG Mean Corpuscular Hemoglobin Concent 31.5 % Red Cell Distribution Width 14.1 % Platelet Count 479 TH/MM3 Mean Platelet Volume 7.0 FL Neutrophils (%) (Auto) 60.0 % Lymphocytes (%) (Auto) 31.1 % Monocytes (%) (Auto) 6.2 % Eosinophils (%) (Auto) 2.1 % Basophils (%) (Auto) 0.6 % Neutrophils # (Auto) 5.7 TH/MM3 Lymphocytes # (Auto) 2.9 TH/MM3 Monocytes # (Auto) 0.6 TH/MM3 Eosinophils # (Auto) 0.2 TH/MM3 Basophils # (Auto) 0.1 TH/MM3 CBC Comment DIFF FINAL Differential Comment Blood Urea Nitrogen 12 MG/DL Creatinine 0.83 MG/DL Random Glucose 115 MG/DL Total Protein 6.8 GM/DL Albumin 3.0 GM/DL Calcium Level 8.5 MG/DL Magnesium Level 2.0 MG/DL Alkaline Phosphatase 68 U/L Aspartate Amino Transf (AST/SGOT) 13 U/L Alanine Aminotransferase (ALT/SGPT) 23 U/L Total Bilirubin LESS THAN 0.1 MG/DL Sodium Level 139 MEQ/L Potassium Level 3.7 MEQ/L Chloride Level 106 MEQ/L Carbon Dioxide Level 24.4 MEQ/L Anion Gap 9 MEQ/L Estimat Glomerular Filtration Rate 78 ML/MIN Total Creatine Kinase 31 U/L MDM Medical Decision Making Medical Screen Exam Complete: Yes Emergency Medical Condition: Yes Interpretation(s) Labs: slight decrease in hemoglobin and hematocrit Differential Diagnosis Musculoskeletal pain, rhabdo, electrolyte abnormality, Narrative Course Patient presents to the emergency department complaining of hands and feet cramping bilaterally since as well as bilateral calf pain. Patient placed on a cardiac care nurse, IV access obtained, labs sent patient given 1 L IV normal saline. Patient given one 5/325 mg p.o. tab of [place]. Diagnosis Primary Impression: Muscle cramp Patient Instructions: General Instructions Additional Instructions: 1. Meds as directed. 2. Return to the ER immediately for fever, vomiting, chest pain, shortness of breath, lower extremity swelling, or for any new/ worrisome/worsening symptoms. 3. Follow-up with your primary care doctor in 24- 48 hours. Med/Other Pt SpecificInfo: Prescription(s) given Scripts Hydrocodone-Acetaminophen ([place]) 5 Mg-325 Mg Tab 1 TAB PO Q6H Y for PAIN for 3 Days, #12 TAB 0 Refills Prov: Jennifer Pearce MD 10/22/17 Disposition: 01 DISCHARGE HOME Condition: Stable Jennifer Pearce MD Oct 22, 2017 04:46
[2017-10-22 05:09] LABS: AUTOMATED NEUTROPHIL # 5.7 TH/MM3 (1.8-7.7); BASOPHIL # 0.1 TH/MM3 (0-0.2); BASOPHIL % 0.6 % (0.0-2.0); EOSINOPHIL # 0.2 TH/MM3 (0-0.4); EOSINOPHIL % 2.1 % (0.0-4.0); HEMOGLOBIN 10.4 GM/DL (11.6-15.3); LYMPH % 31.1 % (9.0-44.0); LYMPHOCYTE # 2.9 TH/MM3 (1.0-4.8); MEAN CELL VOLUME 81.6 FL (80.0-100.0); MEAN CORPUSCULAR HEMOGLOBIN 25.6 PG (27.0-34.0); MEAN CORPUSCULAR HGB CONC 31.5 % (32.0-36.0); MONO % 6.2 % (0.0-8.0); MONOCYTE # 0.6 TH/MM3 (0-0.9); PLATELET COUNT 479 TH/MM3 (150-450); RED BLOOD COUNT 4.04 MIL/MM3 (4.00-5.30); RED CELL DISTRIBUTION WIDTH 14.1 % (11.6-17.2); WHITE BLOOD COUNT 9.5 TH/MM3 (4.0-11.0)
[2017-10-22 05:15] LABS: CHLORIDE 106 MEQ/L (98-107); SODIUM (NA) 139 MEQ/L (136-145)
[2017-10-22 05:18] LABS: CALCIUM 8.5 MG/DL (8.5-10.1)
[2017-10-22 05:19] LABS: BICARBONATE 24.4 MEQ/L (21.0-32.0); BLOOD UREA NITROGEN 12 MG/DL (7-18); GLUCOSE,RANDOM 115 MG/DL (74-106)
[2017-10-22 05:22] LABS: ALT (GPT) 23 U/L (10-53); AST (GOT) 13 U/L (15-37); CREATININE 0.83 MG/DL (0.50-1.00); GLOMERULAR FILTRATION RATE 78 ML/MIN (>89)
[2017-10-22 05:23] VITALS: BP 95/50; PULSE 73; RESP 20; O2SAT 96
[2017-10-22 05:24] LABS: TOTAL BILIRUBIN ADULT LESS THAN 0.1 MG/DL (0.2-1.0); TOTAL PROTEIN 6.8 GM/DL (6.4-8.2)
[2017-10-22 05:25] LABS: ALKALINE PHOSPHATASE 68 U/L (45-117)
[2017-10-22] MEDS ORDERED: ACETAMINOPHEN/HYDROcodone 325 MG/5 MG TAB PO ONE (05:30)
[2017-10-22] MEDS ORDERED: NORC5TAB PO (06:04)
[2017-10-22 06:50] VITALS: BP 110/57
== END 2017-10-22 07:00 | disposition home or self-care (01) ==
LOC: PHED 03:56
DX: R25.2 Cramp and spasm (principal); J45.909 Unspecified asthma, uncomplicated; F41.9 Anxiety disorder, unspecified; F32.9 Major depressive disorder, single episode, unspecified; K58.9 Irritable bowel syndrome, unspecified; Z85.3 Personal history of malignant neoplasm of breast; Z87.891 Personal history of nicotine dependence
CPT/HCPCS: 80053; 82550; 83735; 85025; 96360; 99284; J7030